=== PATIENT | female | born 1965 | race Caucasian/White ===

== ENCOUNTER → 2016-11-22 | Outpatient (CLI) | payer OTHER ==
[~2016-11-22] MED LIST: ARIP20TA8 PO; CA C1TAB28 PO; CETI1TAB7 PO; ECHI167T PO; ESOM40CA PO; ESTROGEN IM; LAMO25TA PO; LIDOCAINE/PRILOCAINE TOPICAL CREAM 5GM TUBE. TP ONE; LINO1LIQ MC; METH10TA2 PO; MILN100T PO; MOVANTIK12.5 MG PO; MULT-18 PO; NEFA200T PO; OMEG1CAP6 PO; OXCA300T3 PO; OXCA600T3 PO; OXYC15TA PO; POLY17PO5 PO; SOLI5TAB PO; TOLT2CAP PO; TOPI25TA32 PO; ZOLE5INF IV; [UNRECOGNIZED DRUG - CODE] PO; [UNRECOGNIZED DRUG - OTHER]; estrogen cream; testosterone cream
--- NOTE | 2016-11-22 23:55 | PAIN ---
DATE OF SERVICE: 11/22/2016 DIAGNOSES: 1. Low back pain. 2. Cervicalgia. 3. Left hip joint pain with osteoarthritis of the hip joint. 4. Myofascial pain. HISTORY OF PRESENT ILLNESS: The patient is a 51-year-old female who returns for followup status post medication management with both oxycodone and methadone. The patient reports she is doing fairly well, is on stable regimen, which helps with her neck and back pain. She also has a spinal cord stimulator, which was placed at an outside facility, which she reports is decreasing her pain by about 50%. The patient reports good results with the medications about 50% additional decrease pain, overall about 75% decreased pain with the combination of the stimulator and the medication management without significant side effects. The patient reports still she is having some pain. Her chief complaint today is some right-sided abdominal pain near the umbilicus where she has had 2 umbilical hernia repair surgeries performed within the last few months and is afraid she has a nerve entrapment in this area. She has seen her general surgeon as well as the plastic surgeon, which are not recommending any specific surgeries at this point. She also has a recent diagnosis of a ____ and also has Ehler-Danlos syndrome, which may be contributing to this. She is very worried as her abdominal wall was quite thin on CT scan on the right side and is worried about re-herniating. The patient reports she is doing well with her medications; however, has had appropriate K-TRACS reporting today and appropriate urinalysis today as well and reports the pain is a 3-4 on a scale of 10, again, some abdominal wall pain on the right side. She is very sensitive on the skin itself. PHYSICAL EXAMINATION: VITAL SIGNS: Today, the patient's blood pressure is 115/71, pulse 79, respirations 18, temperature is 98.1 degrees Fahrenheit. Height is 5 feet 8 inches, weight is 175 pounds. GENERAL: The patient is awake, alert, oriented, appropriate, very pleasant demeanor. HEENT: Head shows normocephalic, atraumatic. Extraocular movements are intact and symmetrical. Oral cavity shows mucous membranes moist and pink. Dentition is intact. NECK: Shows anterior throat supple without palpable lymphadenopathy noted. Swallow reflex is symmetrical. CHEST: Shows normal on inspection. Breath sounds are clear to auscultation bilaterally. HEART: Shows S1 and S2 clear. ABDOMEN: Soft with some tenderness with well-healed surgical scar on the superior aspect of the umbilicus, tenderness just barely off midline to the right of the umbilicus and slightly above it an area of about 3 cm in diameter, very sensitive and allodynic to the touch without skin discoloration or rash. No tenderness on the left side, it is very well demarcated about 3 cm diameter region. With deeper palpation, it has become severely tender, but significant tenderness over the skin itself, very hypersensitive and tender to touch. Lateral to this, medial, superior and inferior this is not tender even with deeper palpation. The patient also has some tenderness over the inferior aspect of the right rib cage, but with only deeper palpation and on the rib margin itself on the anterior aspects at approximately the mid nipple line. MUSCULOSKELETAL: The patient's back shows spine grossly midline. Neck shows some moderate tenderness to palpation in the musculature in the superior medial trapezius as well as lateral trapezius bilaterally, essentially equal. The patient does show good rotational motion of the cervical spine; however, both laterally as well as extension without significant pain reported. Low back shows some moderate tenderness as well. The patient has well-healed surgical scarring from stimulator placement and easily palpable stimulator battery, but is nontender. Lumbar paraspinous muscle shows some very mild tenderness along with deep palpation in the lower lumbar distribution bilaterally. Options were discussed with the patient. The patient's old chart was reviewed as her current medication regimen updated, current review of systems updated today as well. We will refill the patient's methadone as well as oxycodone. We will also add Lidoderm patches for the area of ____ pain in the right abdomen. We did put some Emla cream on the area while she is here in the office today and this helped the pain about 75% after it was on for about 10 minutes. We discussed the potential nerve block for the intraabdominal wall and she will consider this and would like to think about it and will return if she decides this is something that she would like to try, so we recommended that today as well. The patient will follow up with her surgeon regarding any further needs with hernia and postop care and was given a 90-day supply for her pain medications at this time. We will follow up in 90 days or sooner if necessary. WALT ARCHER MD DR: Uzair JOB#: [id number] / [id number]
== END | disposition home or self-care (01) ==
LOC: PNCL 11:31
PROVIDERS: ATTEND Anesthesiology
DX: M54.5 Low back pain (principal); M54.2 Cervicalgia; M25.552 Pain in left hip; M16.12 Unilateral primary osteoarthritis, left hip; M79.1 Myalgia
CPT/HCPCS: 99212

== ENCOUNTER → 2016-12-08 | Outpatient (CLI) | payer OTHER ==
[~2016-12-08] MED LIST changes: +BUPIVACAINE MPF 0.25% 10 ML VIAL. ONE; -LIDOCAINE/PRILOCAINE TOPICAL CREAM 5GM TUBE. TP ONE; +ZOLP5TAB PO; +methylPREDNISolone ACETATE 40 MG/ML VIAL. ONE
--- NOTE | 2016-12-09 02:27 | PAIN ---
DATE OF SERVICE: 12/08/2016 PROGRESS NOTE FOR PAIN CLINIC DIAGNOSES: 1. Myofascial pain. 2. Low back pain. 3. Cervicalgia. 4. Left hip joint pain. HISTORY OF PRESENT ILLNESS: The patient is a 51-year-old female who returns for followup status post trigger point injections as well as medication management. The patient had been doing fairly well with this. We had seen her on 11/22/2016 and she was having some significant pain on the right-sided abdominal wall, mostly on the lateral aspect near the ribs and into the anterior aspect where she has had previous hernia repair. We discussed potential trigger point injection and she would like to proceed with that today. We discussed this in greater detail. She has also talked to her plastic surgeon and general surgeon in the meantime who is recommending a reconstructive surgery for the diastasis recti; however, she would like to try other alternatives first. We also discussed some physical therapy and feel this may be the best option at this time. The patient has still significant pain in the right flank as well as the anterior abdomen, lateral abdomen and lower abdomen on the right hypogastric region as well as the right lower quadrant, superficial with very firm rope-like musculature in this region as on previous visit. PHYSICAL EXAMINATION: VITAL SIGNS: Today, the patient's blood pressure is 113/79, pulse 98, respirations 20, temperature is 97.9 degrees Fahrenheit, height is 5 feet 8 inches, weight is 165 pounds. The patient rates her pain as a 7 on a scale of 10 today. GENERAL: The patient is awake, alert, oriented, appropriate, has a very pleasant demeanor. HEENT: Shows normocephalic, atraumatic. Extraocular movements are intact and symmetrical. Oral cavity shows mucous membranes moist and pink. Dentition is intact. NECK: Shows anterior throat supple. CHEST: Shows breath sounds clear to auscultation bilaterally. HEART: Shows S1 and S2 clear. ABDOMEN: Shows a well-healed surgical scar near the umbilicus with some significant tenderness with palpation of the musculature on the lateral flank in the midaxillary line as well as into the area to the midclavicular line in the right lower quadrant and anterior to this, but lateral to the area of the hernia repair on the lower abdomen, very firm rope-like musculature, very tender with palpation and with the patient in supine position raising the head to flex the abdominal muscles, it becomes more tender as well with palpation in this region. No such findings on the left side. PLAN: Options were discussed with the patient. At this time, the patient's old chart was reviewed as was her current medication regimen and updated. Current review of systems updated today as well. We will proceed with trigger point injections of the internal and external oblique musculature on the right flank and to the ____ midclavicular line in the right lower quadrant. Risks were again discussed including, but not limited to bleeding, infection, possibility of intravascular injection and sequelae, intraperitoneal injection and sequelae, spread of local anesthetic and numbness, side effects of steroid medication and poor results regarding pain control. The patient understands and wishes to proceed. The patient will return to the clinic in approximately 2 weeks for followup, was counseled as to return appointment, activity level and side effects to be aware of. DIAGNOSIS: Myofascial pain. PROCEDURE: Trigger point injection, right lower quadrant and flank, internal oblique and external oblique musculature using sterile prep and drape and local anesthetic. MEDICATIONS INJECTED: A total of 40 mg Depo-Medrol plus a total of 4 mL of 0.25% bupivacaine with negative aspiration with each injection. CONDITION AT DISCHARGE: Stable. The patient tolerated the procedure well, had no complications. WALT ARCHER MD DR: HEMA/milagros JOB#: [id number] / [id number]
== END | disposition home or self-care (01) ==
LOC: PNCL 10:07
PROVIDERS: ATTEND Anesthesiology
DX: M79.1 Myalgia (principal)
CPT/HCPCS: 20552; J1030; J3490

== ENCOUNTER → 2017-02-14 | Outpatient (CLI) | payer OTHER ==
[~2017-02-14] MED LIST changes: +ARIP20TA5 PO; -ARIP20TA8 PO; -BUPIVACAINE MPF 0.25% 10 ML VIAL. ONE; +POLY17PO29 PO; -POLY17PO5 PO; -SOLI5TAB PO; +SOLI5TAB2 PO; -TOPI25TA32 PO; +TOPI25TA52 PO; -methylPREDNISolone ACETATE 40 MG/ML VIAL. ONE
--- NOTE | 2017-02-15 02:25 | PAIN ---
DATE OF SERVICE: 02/14/2017 DIAGNOSES: 1. Myofascial pain. 2. Low back pain. 3. Cervicalgia. 4. Left hip joint pain. HISTORY OF PRESENT ILLNESS: The patient is a 51-year-old female who returns for followup status post previous medication management with both methadone and oxycodone and she has recently had a spinal cord stimulator placed at an outside facility, which she reports is working not as well as it did initially, but still with some good pain relief on the right side of her flank and into the low back to some extent. The patient reports still significant pain in the base of the neck and shoulders, upper back as well as some aching in the low back and right flank. The patient has started physical therapy at an outside facility, which she is very encouraged by. She is doing some good core exercises and strengthening for her abdominal pain. She does have Aston-Danlos syndrome and has some diastasis recti history with pain on the right side, which has been nonresponsive to nerve blocks as well as myofascial trigger point injections to an extent. The patient reports her pain is a 3 on a scale of 10, it is worse currently, is aching dull pain, radiating, constant, severe, mostly in the neck and shoulders, to the low back to a moderate extent, but not as bad as prior to her stimulator placement. The patient reports no new motor or sensory deficits or other complaints. PHYSICAL EXAMINATION: VITAL SIGNS: The patient's blood pressure 120/83, pulse 84, respirations are 18, temperature is 98.0 degrees Fahrenheit, height is 5 feet 8 inches, weighs 170 pounds. GENERAL: The patient is awake, alert, oriented, appropriate, is very pleasant demeanor. HEENT: Head shows normocephalic, atraumatic. Extraocular movements intact and symmetrical. Oral cavity, mucous membranes are moist and pink. Dentition is intact. NECK: Shows anterior throat supple without palpable lymphadenopathy noted. Swallow reflex is symmetrical. CHEST: Shows normal on inspection. Breath sounds are clear to auscultation bilaterally. HEART: Shows S1 and S2 clear. ABDOMEN: Soft, nontender, nondistended, myofascial pain is noted on the inferior aspect of the right lower quadrant as well as into the epigastric area on the right side with some deep palpation. No specific trigger points are palpated on exam today. No specific radiation or other abnormalities, but left side remains nontender to palpation. BACK: The patient's back shows spine grossly in midline, normal-appearing cervical lordotic curvature, thoracic kyphotic curvature, and lumbar lordotic curvature. The patient's paraspinous musculature throughout the cervical distribution is mildly tender to palpation, but more so in the inferior aspect of the cervical paraspinous muscles as well as into the superior medial trapezius and the upper rhomboid distribution with some firm trigger point regions, but without radiation ____ into the thoracic distribution as well as into the lumbar distribution bilaterally. Options were discussed with the patient and the patient's old chart was reviewed as her current medication regimen updated. Current review of systems updated today as well and we will refill the patient's methadone as well as oxycodone with instructions, side effects to be aware of. The patient was counseled to continue her physical therapy as directed at her outside facility as we did supply the orders for this. Also, the patient has been getting more active in her community and feels that she is overall feeling better psychologically as she is finding more things that interest her to participate in and we encouraged this as well. The patient was encouraged to maintain exercise level as tolerated and if the stimulator level is not worked as it was initially, she will have this reevaluated with her stimulator customer service representative and have this reprogrammed as necessary. The patient will follow up in approximately 90 days' and was given 90-day supply of medications. She has had appropriate K-TRACS reporting as well as appropriate urinalysis to date. We will have her return 90 days as scheduled or sooner if necessary. WALT ARCHER MD DR: HEMA/milagros JOB#: [id number] / [id number]
== END | disposition home or self-care (01) ==
LOC: PNCL 10:59
PROVIDERS: ATTEND Anesthesiology
DX: M79.1 Myalgia (principal); M54.2 Cervicalgia; M54.5 Low back pain; M25.552 Pain in left hip
CPT/HCPCS: 99212

== ENCOUNTER → 2017-05-17 | Outpatient (CLI) | payer OTHER ==
--- NOTE | 2017-05-17 12:43 | PAIN ---
DATE OF SERVICE: 05/17/2017 PROGRESS NOTE DIAGNOSES: 1. Myofascial pain. 2. Low back pain. 3. Cervicalgia. 4. Left hip joint pain. 5. Right knee joint pain. HISTORY OF PRESENT ILLNESS: The patient is a 51-year-old female who returns for followup status post medication management with both methadone and oxycodone. The patient was doing fairly well on this with a very reasonably consistent regimen. The patient reports she has had increased pain over the last month to month and a half. During the day without her methadone lasting as long as it normally does, taking more the oxycodone, which we have been trying to discourage her from using, the patient reports that she realizes this and is somewhat worried about the situation as her pain has been increased mostly in the mid back, low back and hips. She does have a spinal cord stimulator now, which has been recently reprogrammed, but without a lot of significant improvement in her pain by her report. The patient reports her pain as 6 on a scale 10 currently at its worst and 4-5 on average, is a 3 on a scale of 10 at least. The patient reports it is radiating, constant, severe, stabbing, sharp, aching, dull, tight and shooting at times. The patient reports it awakens her from sleep occasionally, though she gets about 6 hours of sleep at a time. She can reposition, take medications or get out of bed and change positions. She is able to get back to sleep most nights. The patient reports no new motor or sensory deficits, but still significant pain, as well as in the abdominal wall. She has been decreasing her regimen of workout at the gym because of the increased pain as well and some right-sided abdominal pain, which is residual also. PHYSICAL EXAMINATION: VITAL SIGNS: The patient's blood pressure is 116/89, pulse 96, respirations 18, temperature is 98.4 degrees Fahrenheit, height is 5 feet 8 inches, weighs 173 pounds. GENERAL: The patient is awake, alert, oriented, appropriate, very pleasant demeanor. HEENT: Shows normocephalic, atraumatic. Extraocular movements are intact and symmetrical. Oral cavity shows mucous membranes moist and pink. Dentition is intact. NECK: Shows anterior throat supple without palpable lymphadenopathy noted. Swallow reflex is symmetrical. CHEST: Shows normal on inspection. Breath sounds are clear to auscultation bilaterally. HEART: Shows S1 and S2 clear. No murmurs auscultated. ABDOMEN: Soft with some tenderness, well-healed surgical scar on the superior aspect of the umbilicus, some tenderness just off midline to the right of the umbilicus and slightly above this region, about 3-4 cm lateral to the umbilicus and about 3 cm diameter area of very sensitive area with palpation on previous exams, but without any discoloration, or rash, but markedly tender in the lateral aspect of the rectus region on the right only. The patient has some tenderness with inferior aspect of the right rib cage as well anteriorly along with deeper palpation of the rib margin diffusely. Left side is nontender. No masses palpated. No hernias detected. No rebound or guarding demonstrated. BACK: The patient's back shows grossly midline spine. Neck shows some moderate tenderness to palpation in the musculature and the superior medial trapezius as well as lateral trapezius bilaterally, right and left essentially equal without radiation, without specific trigger points. Thoracic spine shows some [id number] tenderness, more on the right side than the left in the rhomboid distribution as well as the thoracic paraspinous muscles. Lumbar paraspinous muscle shows tenderness bilaterally with palpation throughout the upper, middle, lower distribution of paraspinous muscles, but without significant radiation or trigger points. The patient shows good rotation and motion of lumbar spine, both laterally as well as extension and flexion without significant tenderness. The patient has well-healed surgical scarring from stimulator placement, easily palpable stimulator battery, which is nontender with manipulation. EXTREMITIES: Show lower extremities deep tendon reflexes 1+ in the patellar and tendo calcaneus tendons. Motor exam is strong with 5/5 dorsiflexion and extension. Upper extremities show deep tendon reflexes 2+ in the biceps and triceps tendons. 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 Peripheral pulses are 2+ in radial distribution and 1+ in posterior tibial bilaterally. No peripheral edema is noted in any of the extremities. PLAN: Options were discussed with the patient. At this time, the patient's old chart was reviewed as her current medication regimen and updated. Current review of systems updated today as well, as noted. We will refill the patient's medication. We will change methadone to 50 mg instead of 40 mg on t.i.d. prescription for a temporary time. We will try this for 1-2, three months total and the patient will try and wean herself down on this prior to her next visit. Also refill the patient's oxycodone. We discussed the importance of maintaining her exercise regimen at the gym that she will go back to 3 times a week as soon as possible with slow increasing activity and exercises as well gradually. The patient will maintain her physical therapy as she has seen some physical therapy with some good benefit with her abdominal strength and will resume this as well. She has not gone there for about 2 weeks she reports. I encouraged her to maintain hydration. I encouraged her to watch her diet as well with the exercise program and she is doing a good job of this with her physical therapist she reports. The patient has had appropriate K-TRACS reporting as well as appropriate urinalysis to date as well. We will renew patient's narcotic contract today also. The patient will follow up in approximately 90 days or sooner as necessary and was counseled as to return appointment as well. WALT ARCHER MD DR: HEMA/milagros JOB#: [id number] / [id number]
== END | disposition home or self-care (01) ==
LOC: PNCL 11:07
PROVIDERS: ATTEND Anesthesiology
DX: M54.5 Low back pain (principal); M54.2 Cervicalgia; M79.1 Myalgia; M25.561 Pain in right knee; M25.552 Pain in left hip; R10.9 Unspecified abdominal pain
CPT/HCPCS: 99212

== ENCOUNTER → 2017-08-07 | Outpatient (CLI) | payer OTHER ==
[~2017-08-07] MED LIST changes: +ASCO100020 PO; +CALC600T4 PO; +CELE200C PO; +CRAN300T PO; +LACT1CAP29 PO; +METO10TA81 PO; +MULT-55 PO; +PREVAGEN PO; +RESERVATROL; +TIZA4CAP3 PO; +TOPI100T8 PO
[2017-08-07 09:02] LABS: BILIRUBIN,URINE NEGATIVE (NEG); GLUCOSE,URINE NEGATIVE (NEG); NITRITE,URINE NEGATIVE (NEG); PROTEIN,URINE NEGATIVE (NEG-TRACE); UROBILINOGEN,URINE 0.2 mg/dL (0.2 mg/dL)
[2017-08-07 09:12] LABS: BASO % 0 % (0-3); EOS % 2 % (0-3); HEMATOCRIT 38.8 % (36.0-47.0); HEMOGLOBIN 12.7 g/dL (12.0-15.5); LYMPH # 3.1 x10^3/uL (1.0-4.8); LYMPH % 36 % (24-48); MEAN CORPUSCULAR HEMOGLOBIN 30 pg (25-35); MEAN CORPUSCULAR HGB CONC 33 g/dL (31-37); MEAN CORPUSCULAR VOLUME 91 fL (79-100); MONO % 13 % (0-9); NEUT % 50 % (31-73); PLATELET COUNT 398 x10^3/uL (140-400); RED BLOOD COUNT 4.26 x10^6/uL (3.50-5.40); RED CELL DISTRIBUTION WIDTH 13.4 % (11.5-14.5); WHITE BLOOD COUNT 8.7 x10^3/uL (4.0-11.0)
[2017-08-07 09:20] LABS: BACTERIA,URINE FEW /HPF (0-FEW); RBC,URINE OCC /HPF (0-2); SQUAMOUS EPITHELIAL CELL,UR FEW /LPF
[2017-08-07 09:26] LABS: INR 1.1 (0.8-1.1); PROTHROMBIN TIME PATIENT 13.7 SEC (11.7-14.0)
[2017-08-07 09:32] LABS: ALBUMIN 3.7 g/dL (3.4-5.0); CALCIUM 9.3 mg/dL (8.5-10.1); CREATININE 0.8 mg/dL (0.6-1.0); GFR 75.6; POTASSIUM 3.9 mmol/L (3.5-5.1)
--- NOTE | 2017-08-07 13:06 | EKG ---
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
--- NOTE | 2017-08-07 14:04 | RAD ---
Chest, 2 views, 08/07/2017: History: Preop evaluation for joint surgery. The heart size and pulmonary vascularity are normal. No pulmonary infiltrates are seen. There is no evidence of pleural fluid. There is slight loss of height of a midthoracic vertebral body at approximately the T6 level, unchanged since an MR study from 09/01/2015. Spinal stimulator leads extend to the level of the cervicothoracic junction. IMPRESSION: No acute cardiopulmonary abnormality is detected.
== END | disposition home or self-care (01) ==
LOC: SURGPAT 14:25
PROVIDERS: ATTEND Orthopaedic Surgery
DX: Z01.818 Encounter for other preprocedural examination (principal); M17.11 Unilateral primary osteoarthritis, right knee; I34.1 Nonrheumatic mitral (valve) prolapse; I49.1 Atrial premature depolarization
CPT/HCPCS: 36415; 71020; 80048; 81001; 82040; 82306; 85025; 85610; 85651; 85730; 87086; 87641; 93005

== ENCOUNTER → 2017-08-14 | Outpatient (CLI) | payer OTHER ==
--- NOTE | 2017-08-14 10:33 | PAIN ---
DATE OF SERVICE: 08/14/2017 PROGRESS NOTE FOR PAIN CLINIC DIAGNOSES: 1. Myofascial pain. 2. Low back pain. 3. Cervicalgia. 4. Multiple joint pain. HISTORY OF PRESENT ILLNESS: The patient is a 52-year-old female who returns for followup status post medication management with methadone and oxycodone. The patient reports she is doing very well with this. We had increased her to 50 mg dose of the methadone with plans to reduce this today to 40 and the patient is amenable to this. She has been doing fairly well. She does have a spinal cord stimulator, which was placed at , which she feels helps the pain about 30%-40% overall with her low back and hip pain bilaterally. The patient reports otherwise doing fairly well but no specific side effects with the medications. The patient reports that she is amenable to decreasing the doses. We discussed her morphine equivalents per day and that we need to decrease her to some extent and she is agreeable to this as well. The patient reports no new motor or sensory deficits. Still has some significant pain in the bilateral knees. She is planning a knee surgery on the right side in approximately 2 weeks and also sinus surgery about 4 days after that. The patient reports the pain is 7 on a scale 10 at its worse, 5 on average, 3 at its least and is a 3 today. The patient reports aching, dull, radiating becoming constant more severe in the right side low back, bilateral hips, right knee greater than left again with total knee replacement coming up on the 19th of this month. The patient reports no new motor or sensory deficits, no new side effects and no new motor or sensory deficits or other complaints. The patient reports pain wakes her from sleep about every 6 hours or so but otherwise, she does fairly well with repositioning, taking pain medication. Again, she has had a fairly stable routine with her medications to this date. PHYSICAL EXAMINATION: VITAL SIGNS: Today, blood pressure 136/84, pulse 90, respirations 18, temperature 98.1 degrees Fahrenheit and weight is 172 pounds. GENERAL: The patient is awake, alert, oriented, appropriate and very pleasant demeanor. HEENT: Head shows normocephalic and atraumatic. Extraocular muscles are intact and symmetrical. Oral cavity: Mucous membranes moist and pink. Dentition is intact. NECK: Shows anterior throat supple without palpable lymphadenopathy noted. Swallow reflex symmetrical. CHEST: Shows normal with inspection. Breath sounds are clear to auscultation bilaterally. HEART: Shows S1 and S2 clear. No murmurs auscultated. ABDOMEN: Soft, nontender and nondistended. No palpable organomegaly is noted. BACK: The patient's back shows spine grossly in the midline. Well healed surgical scars noted from spinal cord stimulator implant. Stimulator battery is easily palpable without tenderness. The patient's lumbar distribution shows mild flattening lumbar distribution. Paraspinous musculature shows moderate tenderness bilaterally throughout the upper, middle, lower distribution with deep and moderate palpation. The patient has good rotational motion both laterally as well as extension and flexion. The patient does show some minor tenderness in the middle thoracic paraspinous musculature, more on the right than the left with palpation but without radiation. LOWER EXTREMITIES: Show deep tendon reflexes 1+ in the patellar and tendo calcaneus tendons. Motor exam is strong with dorsiflexion, extension, quadriceps and hamstring flexion approximately 4 on a scale of 5 but equal bilaterally. Peripheral pulses are 1+ posterior tibial. No peripheral edema is noted. Options were discussed with the patient and we will refill the patient's methadone as well as oxycodone, which will be decreased to 150 tablets a month instead of 180 and the methadone will be decreased to 40 mg t.i.d. instead of 50. The patient had appropriate K-TRACS reporting as well as appropriate urinalysis to date. We will check urinalysis today as well as a routine screening tool. We renew the patient's contract and also, we will give the patient medicine for coverage for postoperative pain for her knee and a sinus surgeries at oxycodone 20 mg, only 75 tablets to use for both of these surgeries coming up in the next 2 weeks. The patient will return to the clinic in approximately 90 days or sooner, was asked to call if she has any difficulties with her postoperative pain for her knee or sinus surgery. Also, maintain activity and follow instructions with her orthopedic surgeon regarding rehab on her right knee. WALT ARCHER MD DR: HEMA/milagros JOB#: [id number] / [id number]
== END | disposition home or self-care (01) ==
LOC: PNCL 07:51
PROVIDERS: ATTEND Anesthesiology
DX: M54.5 Low back pain (principal); M54.2 Cervicalgia; M25.551 Pain in right hip; M25.562 Pain in left knee; Z96.653 Presence of artificial knee joint, bilateral
CPT/HCPCS: 99212

== ENCOUNTER → 2017-09-21 | Outpatient (CLI) | payer BC | END | disposition home or self-care (01) | LOC: PNCL 10:46 | DX: M54.2 Cervicalgia (principal); M54.5 Low back pain; G89.18 Other acute postprocedural pain; Z98.890 Other specified postprocedural states; M25.561 Pain in right knee | CPT/HCPCS: 99212 ==

== ENCOUNTER → 2017-10-20 | Outpatient (CLI) | payer BC | END | disposition home or self-care (01) | LOC: PNCL 10:15 | DX: M54.2 Cervicalgia (principal); M54.5 Low back pain; M25.50 Pain in unspecified joint | CPT/HCPCS: 99212 ==

== ENCOUNTER → 2017-11-06 | Outpatient (CLI) | payer OTHER | LOC: PNCL 13:18 | DX: M79.7 Fibromyalgia (principal); M54.2 Cervicalgia; M25.561 Pain in right knee; M54.5 Low back pain; R10.2 Pelvic and perineal pain; Z98.890 Other specified postprocedural states | CPT/HCPCS: 99212 ==

== ENCOUNTER → 2017-11-13 | Outpatient (CLI) | payer BC | LOC: KCIC CT 11:00 | DX: N20.0 Calculus of kidney (principal); J98.11 Atelectasis; D35.02 Benign neoplasm of left adrenal gland; M16.0 Bilateral primary osteoarthritis of hip; M47.896 Other spondylosis, lumbar region; K21.9 Gastro-esophageal reflux disease without esophagitis; Z90.710 Acquired absence of both cervix and uterus; M19.90 Unspecified osteoarthritis, unspecified site; F31.9 Bipolar disorder, unspecified; Z91.048 Other nonmedicinal substance allergy status; Z80.6 Family history of leukemia; Z80.51 Family history of malignant neoplasm of kidney; Z83.3 Family history of diabetes mellitus; Z80.0 Family history of malignant neoplasm of digestive organs | CPT/HCPCS: 74176 ==

== ENCOUNTER → 2018-01-03 | Outpatient (CLI) | payer BC | END | disposition home or self-care (01) | LOC: PNCL 13:14 | DX: M54.5 Low back pain (principal); M54.2 Cervicalgia; M79.1 Myalgia | CPT/HCPCS: 99212 ==

== ENCOUNTER → 2018-01-30 | Outpatient (CLI) | payer BC ==
[~2018-01-30] MED LIST changes: -ARIP20TA5 PO; -ASCO100020 PO; +BUPIVACAINE MPF 0.25% 10 ML VIAL.; -CA C1TAB28 PO; -CALC600T4 PO; -CELE200C PO; -CETI1TAB7 PO; -CRAN300T PO; -ECHI167T PO; -ESOM40CA PO; -ESTROGEN IM; -LACT1CAP29 PO; -LAMO25TA PO; -LINO1LIQ MC; -METH10TA2 PO; -METO10TA81 PO; -MILN100T PO; -MOVANTIK12.5 MG PO; -MULT-18 PO; -MULT-55 PO; -NEFA200T PO; -OMEG1CAP6 PO; -OXCA300T3 PO; -OXCA600T3 PO; -OXYC15TA PO; -POLY17PO29 PO; -PREVAGEN PO; -RESERVATROL; -SOLI5TAB2 PO; -TIZA4CAP3 PO; -TOLT2CAP PO; -TOPI100T8 PO; -TOPI25TA52 PO; -ZOLE5INF IV; -ZOLP5TAB PO; -[UNRECOGNIZED DRUG - CODE] PO; -[UNRECOGNIZED DRUG - OTHER]; -estrogen cream; +methylPREDNISolone ACETATE 40 MG/ML VIAL.; -testosterone cream
== END ==
LOC: PNCL 10:20
DX: M79.1 Myalgia (principal); M54.5 Low back pain; M54.2 Cervicalgia; K21.9 Gastro-esophageal reflux disease without esophagitis; Z90.710 Acquired absence of both cervix and uterus; M19.90 Unspecified osteoarthritis, unspecified site; M81.0 Age-related osteoporosis without current pathological fracture; F31.9 Bipolar disorder, unspecified; F41.9 Anxiety disorder, unspecified; Z83.3 Family history of diabetes mellitus; Z80.51 Family history of malignant neoplasm of kidney; Z80.6 Family history of leukemia; Z80.0 Family history of malignant neoplasm of digestive organs; Z98.890 Other specified postprocedural states
CPT/HCPCS: 20553; J1030; J3490

== ENCOUNTER → 2018-03-28 | Outpatient (CLI) | payer BC | END | disposition home or self-care (01) | LOC: PNCL 13:04 | DX: M54.2 Cervicalgia (principal); M54.5 Low back pain; M25.50 Pain in unspecified joint; M79.1 Myalgia; K21.9 Gastro-esophageal reflux disease without esophagitis; Z80.6 Family history of leukemia; Z80.0 Family history of malignant neoplasm of digestive organs; Z80.51 Family history of malignant neoplasm of kidney; Z83.3 Family history of diabetes mellitus | CPT/HCPCS: 99212 ==

== ENCOUNTER → 2018-07-02 | Outpatient (CLI) | payer BC ==
[2017-08-25 15:05] VITALS: BP 111/74
[~2018-07-02] MED LIST changes: +ARIP20TA5 PO; +ASCO100020 PO; +ASPI325T11 PO; -BUPIVACAINE MPF 0.25% 10 ML VIAL.; +CA C1TAB28 PO; +CALC600T4 PO; +CELE200C PO; +CETI1TAB7 PO; +CRAN300T PO; +ECHI167T PO; +ESOM40CA PO; +ESTROGEN IM; +LACT1CAP29 PO; +LAMO25TA PO; +LINO1LIQ MC; +METH10TA2 PO; +METO10TA81 PO; +MILN100T PO; +MOVANTIK12.5 MG PO; +MULT-18 PO; +MULT-55 PO; +NEFA200T PO; +OMEG1CAP6 PO; +OXCA300T3 PO; +OXCA600T3 PO; +OXYC15TA PO; +POLY17PO29 PO; +PREVAGEN PO; +RESERVATROL; +SOLI5TAB2 PO; +TIZA4CAP3 PO; +TOLT2CAP PO; +TOPI100T8 PO; +TOPI25TA52 PO; +ZOLE5INF IV; +ZOLP5TAB PO; +[UNRECOGNIZED DRUG - CODE] PO; +[UNRECOGNIZED DRUG - OTHER]; +estrogen cream; -methylPREDNISolone ACETATE 40 MG/ML VIAL.; +testosterone cream
--- NOTE | 2018-07-03 00:51 | PAIN ---
DATE OF SERVICE: 07/02/2018 PROGRESS NOTE FOR PAIN CLINIC DIAGNOSES: 1. Myofascial pain. 2. Multiple joint pain. 3. Cervicalgia. 4. Low back pain. HISTORY OF PRESENT ILLNESS: The patient is a 52-year-old female who returns for followup status post medication management of both oxycodone and methadone. The patient reports she has been doing very well and this has been a very stable regimen, without any significant side effects. She reported some significant pain in her right knee, although she was overdoing it, by her description, with her right knee with a lot of recent walking, exercising and climbing stairs. The patient reports pain is increased in the knee. She has seen the orthopedic surgeon, however, who is recommending just decreasing activity, without any other interventional modalities at this time or other treatments. The patient reports there is still significant pain in the mid back, upper back, neck, shoulders and low back as well. Describes it as aching, dull, tight, radiating, becoming more constant, more severe, on and off in intensity. However, the patient reports it is an 8 on a scale of 10 at its worst, 6 on average, 2 at its least and is a 6 today. The patient reports no new motor or sensory deficits. No side effects with the medications. She is doing quite well and it has been on a very stable regimen. The patient reports she is sleeping well at night about every 6 hours. Generally, it is not waking her from sleep most nights, though if it does, she can usually reposition or take pain medication and get back to sleep. The patient reports no new findings. PHYSICAL EXAMINATION: VITAL SIGNS: The patient's blood pressure is 113/75, pulse 90, respirations 18 and temperature is 98.6 degrees Fahrenheit. Height is 5 feet 8 inches, weight is 169 pounds. GENERAL: The patient is awake, alert, oriented, appropriate, very pleasant demeanor. HEENT: Head shows normocephalic, atraumatic. Extraocular muscles are intact and symmetrical. Oral cavity, mucous membranes are moist and pink. Dentition is intact. NECK: Shows anterior throat supple, without palpable lymphadenopathy noted. Swallow reflex is symmetrical. CHEST: Shows normal on inspection. Breath sounds are clear to auscultation bilaterally. HEART: Shows S1, S2 clear. No murmurs auscultated. ABDOMEN: Soft, nontender and nondistended. No palpable organomegaly is noted. No rebound or guarding demonstrated. BACK: Shows spine grossly in the midline. Normal-appearing thoracic kyphosis and lumbar lordotic curvature. Lumbar paraspinous muscle shows symmetrical on inspection, with well-healed surgical scarring noted. With palpation, it shows some mild tenderness in the lumbar distribution bilaterally, without specific radiation, trigger points or asymmetry. The patient has good rotational motion of the lumbar spine, both laterally as well as extension and flexion, without significant increase in pain. EXTREMITIES: Lower extremities show deep tendon reflexes at 1+ in the patellar and tendo calcaneus tendons. Well-healed surgical scars over the right anterior knee. Peripheral pulses are 1+ posterior tibia. No peripheral edema is noted. Motor exam is strong with 5/5 dorsiflexion and extension. Options were discussed with the patient. The patient's old chart was reviewed as her current medication regimen updated. Current review of systems updated today as well and we will refill the patient's methadone as well as oxycodone and Voltaren gel. The patient has had appropriate K-TRACS reporting as well as appropriate urinalysis to date and we will refill for a 3-month, 90-day supply. The patient was given instruction as well as side effects to be aware of with each of the medications and will follow up in about 3 months as scheduled or sooner as necessary. WALT ARCHER MD DR: HEMA/milagros JOB#: [id number] / [id number]
== END | disposition home or self-care (01) ==
LOC: PNCL 13:27
PROVIDERS: ATTEND Anesthesiology
DX: M79.18 Myalgia, other site (principal); M54.5 Low back pain; M54.2 Cervicalgia; M25.50 Pain in unspecified joint
CPT/HCPCS: 99212

== ENCOUNTER → 2018-09-24 | Outpatient (CLI) | payer BC ==
[2017-08-25 15:05] VITALS: BP 111/74
[~2018-09-24] MED LIST changes: +OXCA300T19 PO
--- NOTE | 2018-09-24 17:36 | PAIN ---
DATE OF SERVICE: 09/24/2018 PROGRESS NOTE FOR PAIN CLINIC DIAGNOSES: 1. Myofascial pain. 2. Multiple joint pain. 3. Cervicalgia. 4. Low back pain. HISTORY OF PRESENT ILLNESS: The patient is a 53-year-old female who returns for followup status post medication management with both methadone and oxycodone, also taking Savella and using Voltaren gel for her knee. The patient reports still some significant pain in her knee and she has total knee replacement on the right several months back, but still has some pain with walking and standing. The patient reports her main pain is her low back and her neck and rates at 7 on a scale of 10 at its worst, 6 on average, 4 at its least and is a 6 today. The patient reports it is aching, sharp, dull, radiating, constant, severe at times, difficulty with sleeping occasionally, but generally does not awaken her from sleep every night. The patient reports she is doing well with her medications and has been on a very stable regimen, is having no side effects and again is awake, alert and appropriate. She reports no sedation and no drowsiness. She reports she does have some sleep apnea and she is trialing a CPAP mask currently. She has been snoring at night by her report. The patient did have a sleep study and is trying different CPAP masks currently. The patient reports otherwise no new motor or sensory deficits, no new changes. PHYSICAL EXAMINATION: VITAL SIGNS: The patient's blood pressure is 135/75, pulse 88, respirations 16, temperature 98.6 degrees Fahrenheit, height is 5 feet 8 inches, weight is 171 pounds. GENERAL: The patient is awake, alert, oriented, appropriate, has very pleasant demeanor. HEENT: Head is normocephalic, atraumatic. Extraocular movements are intact and symmetrical. Oral cavity: Mucous membranes are moist and pink. Dentition is intact. NECK: Shows anterior throat supple without palpable lymphadenopathy noted. Swallow reflex is symmetrical. CHEST: Shows normal on inspection. Breath sounds are clear to auscultation bilaterally. HEART: Shows S1, S2 clear. No murmurs auscultated. ABDOMEN: Soft with some minor tenderness in the supraumbilical region and very tender area, which feels like a small ventral hernia approximately 2 cm x 2 cm, which is very tender with pressure and does protrude with bending down. The patient otherwise shows no organomegaly, no rebound or guarding or other areas of tenderness. BACK: Shows spine grossly in the midline. Cervical paraspinous muscles as well as lumbar paraspinal muscles are tender with palpation throughout and diffusely bilaterally, but without radiation. The patient has good rotational motion of cervical spine as well as lumbar spine without significant increase in pain. EXTREMITIES: Show upper extremity deep tendon reflexes 2+. Lower extremities are 1+ in the patellar and tendo calcaneus tendons. Well healed surgical scars noted again on the patient's right knee. Motor exam is strong with gambling supervisor strength rated at 5/5, as is bicep and tricep flexion. Lower extremities show 5/5 dorsiflexion and extension as well bilaterally. Peripheral pulses are 1+ posterior tibial and 2+ radial. No peripheral edema is noted in any of the extremities. Options were discussed with the patient. The patient's old chart was reviewed as her current medication regimen updated. Current review of systems updated today as well. We will refill the patient's methadone as well as oxycodone and Savella and Voltaren gel on a 90-day period. The patient has been very stable on these medications without side effects and has had appropriate K-TRACS reporting as well as appropriate urinalysis to date. We will refill this for a 90-day period. We will have urinalysis today as well as part of routine screening and renew the patient's narcotic contract and will be given a copy of that as well. The patient will follow up in approximately 90 days or sooner as necessary. WALT ARCHER MD DR: HEMA/milagros JOB#: [id number] / [id number]
== END | disposition home or self-care (01) ==
LOC: PNCL 13:00
PROVIDERS: ATTEND Anesthesiology
DX: M79.18 Myalgia, other site (principal); M54.2 Cervicalgia; M54.5 Low back pain; Z96.651 Presence of right artificial knee joint; G47.30 Sleep apnea, unspecified
CPT/HCPCS: G0463

== ENCOUNTER → 2018-11-13 | Outpatient (CLI) | payer BC ==
[2017-08-25 15:05] VITALS: BP 111/74
[~2018-11-13] MED LIST changes: +FLECTOR1 EACH TP; +KETO1SPR NS; -LAMO25TA PO; +LAMO25TA9 PO
--- NOTE | 2018-11-14 00:30 | PAIN ---
DATE OF SERVICE: 11/13/2018 DIAGNOSES: 1. Abdominal pain. 2. Multiple joint pain. 3. Myofascial pain. 4. Cervicalgia. 5. Low back pain. HISTORY OF PRESENT ILLNESS: The patient is a 52-year-old female who returns for followup status post medication management with oxycodone as well as methadone. The patient has been doing very well with this. She has had recent abdominal hernia repair surgery; however, laparoscopically with mesh placement, had some significant pain since the day after the surgery in the left lower quadrant, which is becoming very more noticeably painful for her over times. It is about 6 weeks since her surgery now, reports significant pain in the left lower quadrant of the abdomen, which is her chief complaint today. The patient reports it is 8 on a scale of 10 at its worst, 6 on average, 3 at its least and is a 6 today. The patient reports it is sharp, tight, shooting, burning, stabbing, constant, severe. She is quite worried that something has gone wrong with the mesh. The patient has followed up with her general surgeon who assured her that everything was in place and was doing well, but she is still having significant pain. The patient reports she has been putting Lidoderm patches on the left lower quadrant, also ice packs, which do seem to help, but the pain is there constantly. The patient reports it is constant and severe in the left lower quadrant at this time. The patient reports it awakens her from sleep at night, worse with walking, changing positions, bending, stooping, twisting. She is essentially keeping an ice pack on her side at all times. The patient has tried oral anti-inflammatories, Voltaren as well as Advil, Motrin and Tylenol, all with only minimal decrease in pain. PHYSICAL EXAMINATION: VITAL SIGNS: The patient's blood pressure 142/75, pulse 90, respirations 18, temperature 98.3 degrees Fahrenheit, height is 5 feet 8 inches, weighs is 171 pounds. GENERAL: The patient is awake, alert, oriented, appropriate, very pleasant demeanor. HEENT: Exam shows normocephalic, atraumatic. Extraocular movements are intact and symmetrical. Oral cavity: Mucous membranes moist and pink. Dentition is intact. NECK: Shows anterior throat supple without palpable lymphadenopathy noted. Swallow reflex is symmetrical. CHEST: Shows normal on inspection. Breath sounds are clear to auscultation bilaterally. HEART: Shows S1, S2 clear. ABDOMEN: Shows well-healed surgical scars, laparoscopic scars in the midline as well as in the left lower quadrant on the lateral aspect of the abdominal wall, very tender with palpation over the area of the left incision from laparoscopy and medial and inferior to this. No discoloration, no erythema, no drainage, no swelling, no palpable organomegaly. The patient is quite guarded with palpation on the left lower quadrant. Right side is nontender and soft. Options were discussed with the patient. The patient's old chart was reviewed as was her current medication regimen updated. Current review of systems is updated today as well and we will add a diclofenac patch to the left lower quadrant in her regimen as well as Sprix (nasal Toradol) for try for 5-day period and see this may decrease the inflammation enough and the pain enough to get her back on track. She will continue to use the ice pack as needed, also Lidoderm patches as needed. The patient is given instruction as well as side effects of to be aware of the medications. Sprix [facility] be delivered through [facility]. The patient will follow up in approximately 4 weeks as scheduled or sooner as necessary. WALT ARCHER MD DR: HEMA/milagros JOB#: [id number] / [id number]
== END | disposition home or self-care (01) ==
LOC: PNCL 08:44
PROVIDERS: ATTEND Anesthesiology
DX: M54.2 Cervicalgia (principal); M54.5 Low back pain; M79.18 Myalgia, other site; R10.32 Left lower quadrant pain; M25.50 Pain in unspecified joint
CPT/HCPCS: G0463

== ENCOUNTER → 2018-12-17 | Outpatient (CLI) | payer BC ==
[2017-08-25 15:05] VITALS: BP 111/74
--- NOTE | 2018-12-18 05:02 | PAIN ---
DATE OF SERVICE: 12/17/2018 DIAGNOSES: 1. Myofascial pain. 2. Multiple joint pains. 3. Cervicalgia. 4. Low back pain. 5. Abdominal pain. HISTORY OF PRESENT ILLNESS: The patient is a 53-year-old female who returns for followup status post medication management with both methadone and also oxycodone. The patient had a recent mesh, abdominal hernia repair with some left lower quadrant pain, which was significantly painful following the procedure for several months. The pain is reduced now. She had some acupuncture treatment on her left lower quadrant, which she reports significantly decreased the pain. It is now 6-7 on a scale of 10 at its worst, 6-7 on average, 4 at its least and is a 4 today. The patient reports as much better in the abdomen. Still pain in the base of the neck, shoulders, upper back, mid back and especially in her low back is her main complaint today. The patient reports the pain is aching, dull, tight, shooting, constant, becoming more severe and stabbing in the low back itself with walking, standing, change in positions, wakes her from sleep about every 7 hours at night, but not every night. The patient reports no new motor or sensory deficits, no new bowel or bladder incontinence. Again, her abdomen is doing much, much better. She has been on very stable regimen of her medications without significant side effects except for some constipation and we will maintain with some Movantik which she reports she does not use every day, but it does decrease the constipation significantly. PHYSICAL EXAMINATION: VITAL SIGNS: Today, the patient's blood pressure 130/81, pulse 83, respirations 16, temperature 98.7 degrees Fahrenheit. Height is 5 feet 8 inches, weighs 175 pounds. GENERAL: The patient is awake, alert, oriented, appropriate, very pleasant demeanor. HEENT: Head normocephalic, atraumatic. Extraocular movements intact and symmetrical. Oral cavity, mucous membranes are moist and pink. Dentition is intact. NECK: Shows anterior throat supple without palpable lymphadenopathy noted. Swallow reflex is symmetrical. CHEST: Shows normal with inspection. Breath sounds clear to auscultation bilaterally. HEART: Shows S1 and S2 clear. No murmurs auscultated. ABDOMEN: Shows some moderate tenderness in the left lower quadrant with well-healed surgical scarring noted and also some mild tenderness in the right lower quadrant in the epigastric region as well with no palpable organomegaly. No rebound or guarding demonstrated. BACK: Shows spine grossly in the midline. The patient shows well-healed surgical scars from spinal cord stimulator placement over the right gluteus as well as in the paramedian in the right lumbar paraspinous region. The patient's paraspinous musculature throughout the lower thoracic and upper, middle and lower distribution of the lumbar paraspinal muscles are very firm and moderately tender diffusely bilaterally without radiation. EXTREMITIES: The patient's lower extremities show deep tendon reflexes 1+ in the patellar and tendo-calcaneus tendons. Motor exam is strong with 5/5 dorsiflexion, extension, quadriceps and hamstring flexion. Peripheral pulses are 1+ posterior tibia. No peripheral edema is noted. Options were discussed with the patient. The patient's old chart was reviewed as his current medication regimen updated. Current review of systems updated today as well. We will refill the patient's methadone as well as oxycodone with instructions, side effects to be aware of discussed. Also, Savella and Voltaren gel and Movantik. The patient was given instruction as well as side effects to be aware of each of the medications. The patient had appropriate K-TRACS reporting as well as appropriate urinalysis to date. We will refill this for a 90-day supply. The patient will follow up in 90 days or sooner as necessary. The patient was encouraged to discuss with her [employer] spinal cord stimulator community engagement representative possible reprogramming to include some in the low back distribution with her stimulator if possible. The patient will follow up as scheduled. WALT ARCHER MD DR: HEMA/milagros JOB#: [id number] / [id number]
== END | disposition home or self-care (01) ==
LOC: PNCL 13:15
PROVIDERS: ATTEND Anesthesiology
DX: R10.32 Left lower quadrant pain (principal); M54.2 Cervicalgia; M54.5 Low back pain; M25.50 Pain in unspecified joint; M79.18 Myalgia, other site
CPT/HCPCS: G0463

== ENCOUNTER → 2019-02-12 | Outpatient (CLI) | payer BC ==
[2017-08-25 15:05] VITALS: BP 111/74
[~2019-02-12] MED LIST changes: +ARMO150T4 PO; +ESTR1TAB15 PO
[2019-02-12 12:31] LABS: BILIRUBIN,URINE NEGATIVE (NEG); CLARITY,URINE CLEAR; COLOR,URINE YELLOW; NITRITE,URINE NEGATIVE (NEG); PH,URINE 6.5; PROTEIN,URINE NEGATIVE (NEG-TRACE); UROBILINOGEN,URINE 0.2 mg/dL (0.2 mg/dL)
[2019-02-12 12:36] LABS: AMORPHOUS SEDIMENT,UR PRESENT /HPF; SQUAMOUS EPITHELIAL CELL,UR MANY /LPF
[2019-02-12 12:37] LABS: BACTERIA,URINE MODERATE /HPF (0-FEW); RBC,URINE OCC /HPF (0-2)
--- NOTE | 2019-02-12 12:57 | EKG ---
[facility] [address] [place] [address] Test Date: 2019-02-12 Test Time: 12:58:12 Pat Name: KENA GARCIA Department: Room: Gender: F Clothing Man: SENDY : 1965 Requested By: JULIENNE GIRON Order Number: [id number] Reading MD: Romel Ma Measurements Intervals [place] Rate: 71 P: 38 NM: 182 QRS: 11 QRSD: 96 T: 51 QT: 384 QTc: 422 Interpretive Statements SINUS RHYTHM INCOMPLETE RIGHT BUNDLE BRANCH BLOCK OTHERWISE NORMAL ECG RI6.01 No previous ECG available for comparison Electronically Signed On 02-14-2019 13:46:49 CDT by Romel Ma
[2019-02-12 13:24] LABS: BASO % 0 % (0-3); EOS % 1 % (0-3); HEMATOCRIT 38.2 % (36.0-47.0); HEMOGLOBIN 12.7 g/dL (12.0-15.5); LYMPH # 2.5 x10^3/uL (1.0-4.8); LYMPH % 39 % (24-48); MEAN CORPUSCULAR HEMOGLOBIN 31 pg (25-35); MEAN CORPUSCULAR HGB CONC 33 g/dL (31-37); MEAN CORPUSCULAR VOLUME 92 fL (79-100); MONO # 0.6 x10^3/uL (0.0-1.1); MONO % 10 % (0-9); NEUT # 3.2 x10^3uL (1.8-7.7); NEUT % 50 % (31-73); PLATELET COUNT 369 x10^3/uL (140-400); RED BLOOD COUNT 4.17 x10^6/uL (3.50-5.40); RED CELL DISTRIBUTION WIDTH 13.5 % (11.5-14.5); WHITE BLOOD COUNT 6.4 x10^3/uL (4.0-11.0)
[2019-02-12 13:30] LABS: PROTHROMBIN TIME PATIENT 13.2 SEC (11.7-14.0)
[2019-02-12 13:33] LABS: ALBUMIN 3.9 g/dL (3.4-5.0); CREATININE 0.8 mg/dL (0.6-1.0); POTASSIUM 4.3 mmol/L (3.5-5.1)
--- NOTE | 2019-02-12 17:30 | RAD ---
Chest, 2 views, 02/12/2019: HISTORY: Preop evaluation for knee replacement Comparison is made to a study from 08/07/2017. Spinal stimulator leads extend into the upper thoracic spinal canal. The heart size is normal. No pulmonary infiltrate is seen. There is no evidence of pleural fluid. There is a mild thoracic scoliosis with scattered spurs. There is minimal unchanged loss of height of a midthoracic vertebral body. A slight lower thoracic vertebral compression deformity at approximately T12 is new. IMPRESSION: No acute cardiopulmonary abnormality is detected. Electronically signed by: Eduard Ricardo MD (02/12/2019 5:27 PM) [facility]
== END | disposition home or self-care (01) ==
LOC: SURGPAT 11:48
PROVIDERS: ATTEND Orthopaedic Surgery
DX: Z01.818 Encounter for other preprocedural examination (principal); M23.51 Chronic instability of knee, right knee; M41.84 Other forms of scoliosis, thoracic region; I45.19 Other right bundle-branch block
CPT/HCPCS: 36415; 71046; 80048; 81001; 82040; 82306; 85025; 85610; 85651; 85730; 87086; 87641; 93005

== ENCOUNTER → 2019-03-11 | Outpatient (CLI) | payer BC ==
[2019-02-22 15:30] VITALS: BP 102/63
--- NOTE | 2019-03-11 21:40 | PAIN ---
DATE OF SERVICE: 03/11/2019 PROGRESS NOTE FOR PAIN CLINIC DIAGNOSES: 1. Myofascial pain. 2. Multiple joint pain. 3. Cervicalgia. 4. Low back pain. 5. Right knee joint pain postoperatively. 6. Abdominal pain, left lower quadrant. HISTORY OF PRESENT ILLNESS: The patient is a 53-year-old female who returns for followup status post medication management with both methadone and oxycodone. The patient is doing very well on a very stable regimen. We had planned to decrease her methadone back down to 30 mg 3 times a day instead of 40 mg. She had recent knee surgery and recovering well with this. We covered this with some additional oxycodone for postop pain as well. The patient reports she is doing quite well, still rehabing and still has a brace on her knee and using a walker to ambulate, but is doing very well, is doing her physical therapy and getting through it by her report quite well. The patient reports that her pain is well controlled, still has a 6-7 on a scale of 10 at its worst, 4 on average, 2 at its least and is a 4 today. The patient reports it is aching, dull, shooting, radiating, sometimes constant and sometimes severe in the back as well as the neck and shoulders, but also in the right knee. The patient reports no new motor or sensory deficits and no new changes. PHYSICAL EXAMINATION: VITAL SIGNS: The patient's blood pressure is 137/86, pulse 81, respirations 18, temperature 98.3 degrees Fahrenheit, height is 5 feet 8 inches and weight is 175 pounds. GENERAL: The patient is awake, alert, oriented, appropriate, very pleasant demeanor. The patient is accompanied by her spouse. HEENT: Shows normocephalic and atraumatic. Extraocular movements are intact and symmetrical. Oral cavity: Mucous membranes are moist and pink. Dentition is intact. NECK: Shows anterior throat is supple without palpable lymphadenopathy noted. Swallow reflex is symmetrical. CHEST: Shows normal with inspection. Breath sounds are clear bilaterally. HEART: Shows S1 and S2 clear. ABDOMEN: Soft, nontender and nondistended. Well-healed surgical scarring noted. BACK: The patient's back shows spine grossly in the midline. Some moderate tenderness with palpation of the cervical paraspinous musculature only diffusely bilaterally into the superior medial and lateral trapezius as well. Lumbar spine shows symmetrical with well-healed surgical scarring noted from spinal cord stimulator placement, moderate tenderness on palpation of the bilateral paraspinous musculature of the lumbar distribution as well, but only diffusely without radiation. The patient has good rotational motion of both the cervical spine and the lumbar spine without significant pain reported. EXTREMITIES: The patient's extremities show upper extremity deep tendon reflexes at 2+ in the biceps and triceps tendons. Grape Crusher strength is strong with 5/5 underbaster strength, bicep and tricep flexion. Lower extremities show deep tendon reflexes 1+ in the left patellar tendon, right did not assess secondary to brace and ice pack on her right knee. Motor exam is approximately 3 or 4 on a scale of 5 with right quadriceps, hamstring and 5/5 on the left, again secondary to brace on her right knee and quadriceps. Options were discussed with the patient. The patient's old chart was reviewed as was her current medication regimen updated. Current review of systems updated today as well. We will refill the patient's methadone again only 30 mg 3 times daily decreased from 40 and also oxycodone 15 mg on a p.r.n. basis. The patient has had appropriate K-TRACS reporting as well as appropriate urinalysis to date. We will make this a 90-day prescription. The patient also is requesting a letter for her upcoming employment, she is starting a new job in about one month, describing the medication that she is on and why she is on them. She is close to her new employer. We will make those arrangements. The patient will follow up in approximately 90 days or sooner as necessary, was counseled on medication regimen as well as side effects to be aware of with each of her medications. Also given prescriptions for Movantik and Voltaren gel and we will follow up as scheduled. WALT ARCHER MD DR: HEMA/milagros JOB#: [id number] / [id number]
== END | disposition home or self-care (01) ==
LOC: PNCL 12:54
PROVIDERS: ATTEND Anesthesiology
DX: M54.5 Low back pain (principal); M54.2 Cervicalgia; R10.32 Left lower quadrant pain; M25.561 Pain in right knee; M79.18 Myalgia, other site; Z79.891 Long term (current) use of opiate analgesic
CPT/HCPCS: G0463

== ENCOUNTER → 2019-06-03 | Outpatient (CLI) | payer BC ==
[2019-02-22 15:30] VITALS: BP 102/63
--- NOTE | 2019-06-03 08:53 | PAIN ---
DATE OF SERVICE: 06/03/2019 PROGRESS NOTE FOR PAIN CLINIC DIAGNOSES: 1. Myofascial pain. 2. Multiple joint pain. 3. Cervicalgia. 4. Low back pain. 5. Abdominal pain and postop pain. HISTORY OF PRESENT ILLNESS: The patient is a 53-year-old female who returns for followup status post medication management with both methadone and oxycodone, also taking Savella and Movantik for constipation, which she is doing quite well with. The patient reports she does not take it every day, but when she does need it does work well. The patient reports still having some difficulty with pain in the low back, mid back, upper back, neck, chest, shoulders and right flank. Describes it as aching, sharp, dull, tight, constant, radiating, and severe. The patient reports the pain is 7-8 on a scale of 10 at its worst, 5-6 on average, 4-5 at its least and is a 6 today. The patient reports she has just started a new job, which she is not happy with and this is causing some emotional stress with her as well. She has difficulty sleeping. Her CPAP machine is not working well and she has a spinal cord stimulator, which was put in at an outside facility, has been off for the past week and she is having some difficulty with programming which is being addressed later today as well. The patient reports no side effects with her medications. She reports that overall on most days, the pain is decreased by about 70-75% with the medication without any significant side effects, but lately with emotional stress and the stimulator issues, it has not been quite effective. PHYSICAL EXAMINATION: VITAL SIGNS: The patient's blood pressure 126/81, pulse 91, respirations 18, temperature 98.4 degrees Fahrenheit, height is 5 feet 8 inches, weight is 165 pounds. GENERAL: The patient is awake, alert, oriented, appropriate, very pleasant demeanor. HEENT: Shows normocephalic, atraumatic. Extraocular movements are intact and symmetrical. Oral cavity: Mucous membranes moist and pink. Dentition is intact. NECK: Shows anterior throat supple without palpable lymphadenopathy noted. Swallow reflex symmetrical. CHEST: Breath sounds clear to auscultation bilaterally. HEART: Shows S1, S2 clear. No murmurs auscultated. ABDOMEN: Soft, nontender, nondistended. No palpable organomegaly is noted. No rebound or guarding demonstrated. She shows some moderate tenderness in the left lower quadrant as well as some on the right rib margin, but without rash and without abnormalities on appearance and without any obvious masses palpated, but with some sensitivity and allodynic type pain on the skin on the right rib margin, mostly laterally and slightly towards the anterior aspect as well on the inferior rib margin on the right. BACK: The patient's neck shows good rotational motion of cervical spine, both laterally as well as extension and flexion. Paraspinous musculature symmetrical on inspection, with palpation shows some moderate tenderness diffusely throughout the upper, middle and lower distribution of the cervical paraspinous musculature. This is true in the lumbar distribution as well with symmetry on appearance, but with moderate tenderness and well-healed surgical scarring noted from stimulator implant. Moderate tenderness with palpation throughout the upper, middle and lower distribution of paraspinous muscles in the lumbar distribution, also without radiation or trigger points. EXTREMITIES: Upper extremity deep tendon reflexes 2+, lower extremities are 1+ patellar and tendo calcaneus tendons. Motor exam is strong with flow worker strength as well as biceps and tricep flexion, dorsiflexion, extension, quadriceps and hamstring flexion, symmetrical and 5/5 and equal bilaterally. Options were discussed with the patient. The patient's old chart was reviewed as her current medication regimen updated. Current review of systems updated today as well and we will refill the patient's medications. She has had appropriate K-TRACS reporting as well as appropriate urinalysis to date, for a 90-day supply of methadone, also oxycodone, Savella and Voltaren gel. The patient was given instruction as well as side effects to be aware of each of the medications and will follow up in approximately 90 days or sooner as necessary. WALT ARCHER MD DR: HEMA/milagros JOB#: [id number] / [id number]
== END | disposition home or self-care (01) ==
LOC: PNCL 07:32
PROVIDERS: ATTEND Anesthesiology
DX: M79.18 Myalgia, other site (principal); M54.2 Cervicalgia; G89.18 Other acute postprocedural pain; R10.9 Unspecified abdominal pain; M54.5 Low back pain; M25.50 Pain in unspecified joint
CPT/HCPCS: G0463

== ENCOUNTER → 2019-06-20 | Outpatient (CLI) | payer BC ==
[2019-02-22 15:30] VITALS: BP 102/63
== END | disposition home or self-care (01) ==
LOC: LAB 09:52
PROVIDERS: ATTEND Orthopaedic Surgery
DX: Z47.1 Aftercare following joint replacement surgery (principal); Z96.651 Presence of right artificial knee joint
CPT/HCPCS: 36415; 85651; 86141

== ENCOUNTER → 2019-08-19 | Outpatient (CLI) | payer BC ==
[2019-02-22 15:30] VITALS: BP 102/63
--- NOTE | 2019-08-19 09:59 | PAIN ---
DATE OF SERVICE: 08/19/2019 PROGRESS NOTE FOR PAIN CLINIC DIAGNOSES: 1. Myofascial pain. 2. Multiple joint pain. 3. Cervicalgia. 4. Low back pain. 5. Abdominal pain. 6. Right shoulder joint pain with osteoarthritis. HISTORY OF PRESENT ILLNESS: The patient is a 54-year-old female who returns for followup status post medication management with both methadone and oxycodone, also Savella and Voltaren gel. The patient is doing well with these, some constipation, which is controlled with Movantik which she is also taking for the constipation controlling it well. The patient reports that she is basically at baseline with the medications approximately about 70% improvement with medications overall. The patient has had some emotional stress associated with her place of employment lately, which has caused the pain to be more noticeable, but overall fairly well managed. The patient has had some right shoulder pain, which she is seeking a new orthopedic evaluation soon. The patient reports the pain is 8 on a scale of 10 at its worst over the past week, 7-8 on average, 5 at its least and is an 8 today. The patient reports it is aching, dull, tight, burning, radiating, constant, severe at the base of the neck, shoulders, upper back, mid back, low back, right shoulder greater than left, also both knees. The patient reports no new motor or sensory deficits, no new bowel or bladder incontinence or other complaints. The patient reports it awakens her from sleep at least every 5 hours or so at night from either the shoulder, the low back, back of the neck and over the knees themselves. The patient reports her spinal cord stimulator, which she has had put in at an outside facility, has been turned off as it was causing the pain to actually get worse. PHYSICAL EXAMINATION: VITAL SIGNS: The patient's blood pressure 132/81, pulse 99, respirations 18, temperature 98.2 degrees Fahrenheit, height is 5 feet 8 inches and weight is 166 pounds. GENERAL: The patient is awake, alert, oriented, appropriate, very pleasant demeanor. HEENT: Head shows normocephalic, atraumatic. Extraocular movements are intact and symmetrical. Oral cavity: Mucous membranes moist and pink. Dentition is intact. NECK: Shows anterior throat supple without palpable lymphadenopathy noted. Swallow reflex symmetrical. CHEST: Shows normal on inspection. Breath sounds are clear bilaterally. HEART: Shows S1, S2 clear. No murmurs auscultated. ABDOMEN: Soft, mildly tender in the inferior aspect with well-healed surgical scars noted in the periumbilical region and mildly tender as well, but without rebound, without guarding without organomegaly. BACK: The patient's back shows spine grossly in midline. Cervical paraspinous muscle shows symmetrical on inspection, on palpation shows some moderate tenderness diffusely throughout the upper, middle and lower distribution of paraspinous muscles, but without specific trigger points. The patient does show good rotational motion of cervical spine, both laterally as well as extension and flexion without significant difficulty. This is true in the thoracic spine as well as lumbar spines bilaterally. The patient shows no trigger points, no radiation of pain. The patient has good rotational motion of lumbar spine as well without significant increase in pain as well. EXTREMITIES: The patient's extremities show upper extremity deep tendon reflexes 2+ in the biceps, triceps tendons. Lower extremities are 1+ patellar tendons. Motor exam is strong with clinical operations manager strength rated at 5/5 as is biceps and triceps flexion. Lower extremities show deep tendon reflexes at 1+ patellar and tendo-calcaneus tendons. Motor exam is strong with dorsiflexion, extension, quadriceps and hamstring flexion rated at 5/5. Options were discussed with the patient. The patient's old chart was reviewed as her current medication regimen updated. Current review of systems updated today as well. We will proceed with refill of the patient's medications. She has had a very good success with the current medications and doses without any alteration or adjustments recently. The patient has had appropriate K-TRACS reporting as well as appropriate urinalysis to date. We refilled these for a 90-day supply with each medication. The patient was given instruction as well as side effects to be aware of each of the medications and will have urinalysis today as routine screening. Also, redo of the patient's narcotic contract. She was given a copy of this as well. The patient will follow up in approximately 90 days or sooner if necessary. WALT ARCHER MD DR: HEMA/milagros JOB#: [id number] / [id number]
== END | disposition home or self-care (01) ==
LOC: PNCL 07:33
PROVIDERS: ATTEND Anesthesiology
DX: M19.011 Primary osteoarthritis, right shoulder (principal); M79.18 Myalgia, other site; M45.2 Ankylosing spondylitis of cervical region; M54.5 Low back pain; R10.9 Unspecified abdominal pain
CPT/HCPCS: G0463

== ENCOUNTER → 2019-09-05 | Outpatient (CLI) | payer BC, OTHER ==
[2019-02-22 15:30] VITALS: BP 102/63
--- NOTE | 2019-09-05 08:45 | PAIN ---
DATE OF SERVICE: 09/05/2019 PROGRESS NOTE FOR PAIN CLINIC DIAGNOSES: 1. Myofascial pain. 2. Multiple joint pain. 3. Cervicalgia. 4. Lumbago. 5. Right shoulder joint pain with osteoarthritis. HISTORY OF PRESENT ILLNESS: The patient is a 54-year-old female, who returns for followup status post medication management with both methadone and oxycodone, also Savella. The patient reports she has been doing very well on all of these medications. She has tried Flexeril, Cymbalta, gabapentin, and Lyrica in the past with very significant bad side effects. Also, amitriptyline and we had tried Savella, which she does fairly well with decent amount of decrease in pain and her myofascial multiple symptoms. The patient reports recently she has had something where she felt a pop or a crack in her mid upper back between the shoulder blades or just below the shoulder blades in the thoracic region, which had significant pain. She went to an urgent care a few days ago, had an x-ray done. She was told she had a compressed disk and had an MRI scan ordered, which will be done tomorrow, 09/06/2019. I asked her to forward the results of that to us when this is done. Significant pain in the mid upper back between the shoulder blades or just below the shoulder blades, slightly more on the right than the left, but without any specific radiation. The patient reports otherwise doing well with her medications. No specific side effects. She has been on very stable regimen with the Savella as well as the methadone and oxycodone. PHYSICAL EXAMINATION: VITAL SIGNS: The patient's blood pressure is 107/72, pulse 96, respirations 18, temperature 98.2 degrees Fahrenheit, height is 5 feet 8 inches, weight is 164 pounds. GENERAL: The patient is awake, alert, oriented, appropriate. She has very pleasant demeanor. The patient rates her pain as a 7-8 on a scale of 10. The patient describes it as aching, sharp, shooting, stabbing, radiating, and severe in the mid upper back. HEENT: Shows normocephalic, atraumatic. Extraocular movements are intact and symmetrical. Oral cavity shows mucous membranes moist and pink. Dentition is intact. NECK: Shows anterior throat supple without palpable lymphadenopathy noted. Swallow reflex symmetrical. CHEST: Shows normal on inspection. Breath sounds clear to auscultation bilaterally. HEART: Shows S1, S2 clear. No murmurs auscultated. BACK: Shows spine grossly in the midline. Normal-appearing thoracic kyphosis, cervical lordotic curvature, some minor flattening of the lumbar lordotic curvature with well-healed surgical scarring noted from previous spinal cord stimulator placement, easily palpable stimulator battery over the right gluteus. The patient's back shows some moderate tenderness with slight hypertrophy in the right thoracic paraspinous musculature in the mid and lower thoracic distribution, but less so than the left, but no specific trigger points, has very firm musculature, which is moderately tender with palpation, but only moderately so. The patient has good rotational motion of the cervical and thoracic spines, both laterally as well as extension and flexion without significant increase in pain. EXTREMITIES: The patient's upper extremities show deep tendon reflexes 2+ in the biceps and triceps tendons. Motor exam is strong with accident examiner strength as well as bicep and tricep flexion, rated at 5/5 and equal. Peripheral pulses are 2+ radial. No peripheral edema is noted. PLAN: Options were discussed with the patient. The patient's old chart was reviewed as her current medication regimen updated. Current review of systems updated today as well. We will await the patient's MRI scan, which is scheduled for tomorrow and was asked to have the results sent to our office. The patient will continue with her medications as prescribed at this time. We will await the MRI scan results and proceed from there. WALT ARCHER MD DR: HEMA/milagros JOB#: [id number] / [id number]
== END | disposition home or self-care (01) ==
LOC: PNCL 07:58
PROVIDERS: ATTEND Anesthesiology
DX: M19.011 Primary osteoarthritis, right shoulder (principal); M79.18 Myalgia, other site; M54.2 Cervicalgia; M54.5 Low back pain
CPT/HCPCS: G0463

== ENCOUNTER → 2019-11-11 | Outpatient (CLI) | payer OTHER ==
[2019-02-22 15:30] VITALS: BP 102/63
--- NOTE | 2019-11-11 10:17 | PAIN ---
DATE OF SERVICE: 11/11/2019 PROGRESS NOTE FOR PAIN CLINIC DIAGNOSES: 1. Myofascial pain. 2. Multiple joint pain. 3. Cervicalgia. 4. Low back pain. 5. Abdominal pain. HISTORY OF PRESENT ILLNESS: The patient is a 54-year-old female, who returns for followup status post medication management with both methadone and oxycodone, also the patient is taking Movantik and Savella. The patient reports she is doing fairly well with this very stable regimen with medications. Still some significant low back pain in the mid and low back itself. The patient reports it is worse with walking, standing, changing positions, better with sitting or lying down, still significant pain now with daily activities. The patient reports anywhere from 5-6 hours at night, it is waking her from sleep. Reports no new motor or sensory deficits, but has multiple new x-rays from her [facility] the [facility], which she has left for review. The patient reports the pain is a 7-8 on a scale of 10 at its worst over the past week, 6 on an average, 4-5 at its least and is a 5 today. The patient reports it is aching, sharp, dull, tight, stabbing, radiating, becoming more constant, more severe. The patient reports no loss of motor function, but still significant pain in the mid and low back itself. The patient does have a spinal cord stimulator, which was placed at an outside facility and reports she is having the leads revised later this week for the insertion site as she is having some pain over that region at the upper part of the lumbar spine. The patient reports no side effects with the medications, has been on a stable regimen with the methadone and oxycodone for some time now, reports about a 70% improvement overall with the medications and again without specific side effects except for constipation, which responds fairly well to Movantik as well as hydration, [id number] laxatives and senna that she has been using recently. PHYSICAL EXAMINATION: VITAL SIGNS: The patient's blood pressure is 113/72, pulse 83, respirations 12, temperature is 98.1 degrees Fahrenheit, height is 5 feet 8 inches, weight is 172 pounds. GENERAL: The patient is awake, alert, oriented, appropriate, very pleasant demeanor. HEENT: Shows normocephalic, atraumatic. Extraocular movements are intact and symmetrical. Oral cavity: Mucous membranes moist and pink; dentition is intact. NECK: Shows anterior throat supple without palpable lymphadenopathy noted. Swallow reflex symmetrical. CHEST: Shows normal on inspection. Breath sounds are clear bilaterally. HEART: Shows S1, S2 clear. No murmurs auscultated. ABDOMEN: Soft. Well-healed surgical scar is noted. Some moderate tenderness throughout the upper quadrants as well as the lower quadrants, but only diffusely without significant radiation, without organomegaly or rebound demonstrated. BACK: The patient's back shows spine grossly in midline. Well-healed surgical scar is noted from spinal cord stimulator placement, which is moderately tender throughout the lumbar paraspinous musculature bilaterally, but appears symmetrical without evidence of atrophy or hypertrophy. The patient has good rotational motion of lumbar spine, both laterally as well as extension and flexion without significant difficulty. No tenderness over the sacrum, sacroiliac regions or the spinous processes. EXTREMITIES: Lower extremities show deep tendon reflexes at 1+ in the patellar and tendo-calcaneus tendons. Motor exam is strong with 5/5 dorsiflexion and extension. Peripheral pulses are 1+ posterior tibial bilaterally. Options were discussed with the patient. The patient's old chart was reviewed as her current medication regimen updated. Current review of systems updated today as well. We will refill the patient's methadone as well as oxycodone, Savella and Voltaren gel. The patient has had appropriate K-TRACS reporting as well as appropriate urinalysis to date. We will refill this for a 90-day period. The patient was given instructions as well as side effects to be aware of each of the medications and will follow up in approximately 90 days or sooner as necessary. Also, after discussion, we will order physical therapy for lumbar traction for the patient as this may be beneficial with degenerative changes existing in her lumbar spine on recent films. WALT ARCHER MD DR: HEMA/milagros JOB#: [id number] / [id number]
== END | disposition home or self-care (01) ==
LOC: PNCL 07:48
PROVIDERS: ATTEND Anesthesiology
DX: M51.36 Other intervertebral disc degeneration, lumbar region (principal); M25.50 Pain in unspecified joint; M79.18 Myalgia, other site; M54.2 Cervicalgia; R10.84 Generalized abdominal pain
CPT/HCPCS: G0463

== ENCOUNTER → 2020-02-05 | Outpatient (CLI) | payer OTHER ==
[2019-02-22 15:30] VITALS: BP 102/63
[~2020-02-05] MED LIST changes: +ESTR-113 PO; -ESTR1TAB15 PO; -OXYC15TA PO; +OXYC15TA3 PO
--- NOTE | 2020-02-05 12:53 | PAIN ---
DATE OF SERVICE: 02/05/2020 PROGRESS NOTE FOR PAIN CLINIC DIAGNOSES: 1. Myofascial pain. 2. Chronic pain syndrome. 3. Multiple joint pain. 4. Cervicalgia. 5. Low back pain. 6. Abdominal pain, left lower quadrant, postoperatively. 7. Right knee joint pain, postoperatively. 8. Right shoulder joint pain with osteoarthritis. HISTORY OF PRESENT ILLNESS: The patient is a 54-year-old female who returns for followup status post medication management both methadone and oxycodone as well as Voltaren gel and Movantik for constipation. The patient returns for followup today reporting still significant pain in the mid back, upper back, especially in the low back bilaterally. The patient reports also some pain in the right shoulder. She has seen orthopedist tomorrow regarding the right shoulder pain as well as followup on her right knee joint, which has been replaced in the recent past. The patient reports the pain is a 6 on a scale of 10 at its worst over the past week, 4 on average, 2 at its least and is a 4 today. The patient reports it is aching, dull, radiating, constant, severe in the low back, aching and dull in the right shoulder with some burning pain in the right shoulder as well. The right knee is doing better; however, still some tingling pain now and then, but her low back is her main complaint today. The patient does have a spinal cord stimulator, which was placed at an outside facility, but the patient reports that the coverage of the low back, is not covering at all. The patient reports it does help with the upper thoracic pain that she has had, however. The patient reports no new motor or sensory deficits, no new bowel or bladder incontinence, no side effects with the medication and has been on very stable regimen of this as well. The patient reports she is sleeping fairly well at night, awakens her from sleep occasionally with low back pain about every 5 hours, but not every night. PHYSICAL EXAMINATION: VITAL SIGNS: The patient's blood pressure 115/76, pulse 90, respirations 18, temperature 99.2 degrees Fahrenheit, height is 5 feet 8 inches, weight is 169 pounds. GENERAL: The patient is awake, alert, oriented, appropriate, very pleasant demeanor. HEENT: Shows normocephalic, atraumatic. Extraocular movements are intact and symmetrical. Oral cavity shows mucous membranes moist and pink. Dentition is intact. NECK: Shows anterior throat supple without palpable lymphadenopathy noted. Swallow reflex symmetrical. CHEST: Shows normal on inspection. Breath sounds are clear to auscultation bilaterally. No rales, rhonchi or wheezes auscultated. HEART: Shows S1, S2 clear. No murmurs auscultated. ABDOMEN: Soft, nontender, nondistended with well-healed surgical scarring noted. Some mild firm abdominal wall palpation in the inferior rectus abdominis more on the right than the left, but without specific trigger points and without significant radiation or significant pain with palpation. BACK: The patient's back shows spine grossly in the midline. Well-healed surgical scar is noted from spinal cord stimulator placement in the lumbar spine. Easily palpable stimulator is in the right posterior superior gluteus. The patient has good rotational motion of lumbar spine with significant tenderness with extension and axial loading of the lumbar spine, but better with forward flexion at 45 degrees. Right and left lateral rotation is performed fully without significant difficulty as well. The patient shows no significant tenderness over the sacroiliac regions, spinous processes or the sacrum itself. EXTREMITIES: The patient's extremities show upper extremity deep tendon reflexes at 2+ in the biceps and triceps tendons. Motor exam is strong with talcer strength rated at 5/5 and equal bilaterally. Lower extremities show deep tendon reflexes 1+ in the patellar and tendo-calcaneus tendons and symmetrical. Peripheral pulses are 1+ posterior tibia. Motor is 5/5 with dorsiflexion and extension bilaterally as well. PLAN: Options were discussed with the patient. The patient's old chart was reviewed as her current medication regimen updated. Current review of systems updated today as well. We will refill the patient's medications, both methadone and oxycodone for a 90-day supply as she has had appropriate K-TRACS reporting as well as appropriate urinalysis to date. The patient was given instruction as well as side effects to be aware of each of the medications. Also, we will follow up with her spinal cord stimulator billing customer service representative for reprogramming was highly recommended to try this to cover the low back coverage with the stimulator. The patient will contact her billing customer service representative regarding this. Also, follow up with her orthopedic surgeon tomorrow as scheduled. WALT ARCHER MD DR: [email or web address]/milagros JOB#: [id number] / [id number]
== END | disposition home or self-care (01) ==
LOC: PNCL 10:35
PROVIDERS: ATTEND Anesthesiology
DX: G89.18 Other acute postprocedural pain (principal); M22.41 Chondromalacia patellae, right knee; M25.461 Effusion, right knee; M54.2 Cervicalgia; M54.5 Low back pain; R10.32 Left lower quadrant pain; M25.511 Pain in right shoulder; M25.561 Pain in right knee
CPT/HCPCS: G0463

== ENCOUNTER → 2020-04-29 | Outpatient (CLI) | payer OTHER ==
[2019-02-22 15:30] VITALS: BP 102/63
[~2020-04-29] MED LIST changes: -CALC600T4 PO; +CALC600T6 PO
--- NOTE | 2020-04-29 11:09 | PDOC ---
Progress Note - Pain Clinic Date of Service: DOS: DATE: 04/29/20 TIME: 11:04 Diagnosis: Dx: Myofascial pain Multi-joint pain Chronic pain syndrome Abdominal pain left lower quadrant Right knee joint pain Right shoulder joint pain Cervicalgia Low back pain History or Present Illness: HPI: 54-year-old female returns for follow-up status post medication management with both methadone and oxycodone as well as Voltaren gel and Savella. Patient reports she is doing very well on this but a very stable regimen but 70% improvement with the medications and without specific side effects except for constipation which she takes Movantik for which is helpful. Patient reports significant increase in pain however in the low to mid back patient does have a spinal cord stimulator placed at an outside facility which is not covering this area and patient reports that her spine physician is evaluating her for a second stimulator to be trialed next week. Patient reports the pain in the low back is an 8 on a scale of 10 is worse over the past week 7 on average/and is a 7 today patient which is aching dull tight pain more constant severe worse with activity walking standing changing positions. Patient does have new plain films of the lumbar spine and her hip showing some facet arthropathy most significant at the L5-S1 levels bilaterally. Patient reports no new motor or sensory deficits no new bowel bladder incontinence no other side effects with medication. Physical Exam: VS: Pressure is 120/80 pulse 96 respirations 18 temperature 98.4 F height is 5 foot 8 inches weight is 170 pound PE: PHYSICAL EXAMINATION: GENERAL: The patient is awake, alert, oriented, appropriate, very pleasant demeanor HEENT: Shows normocephalic, atraumatic. Extraocular movements are intact and symmetrical. Oral cavity: Mucous membranes moist and pink. Dentition is intact. NECK: Shows anterior throat supple without palpable lymphadenopathy noted. Swallow reflex symmetrical. CHEST: Shows normal on inspection. Breath sounds are clear bilaterally no rales rhonchi or wheezes auscultated. HEART: Shows S1, S2 clear. No murmurs auscultated. ABDOMEN: Soft, mildly tender in the left lower quadrant with well-healed surgical scarring noted, nondistended. No palpable organomegaly is noted. No rebound or guarding demonstrated. BACK: Shows spine grossly in the midline. Normal-appearing cervical lordotic curvature. There is slightly increased thoracic kyphosis, some minor flattening of the lumbar lordotic curvature. Lumbar paraspinous muscles show symmetrical on inspection, with well-healed surgical scarring and easily palpable spinal cord stimulator generator, on palpation shows some moderate tenderness diffusely throughout the upper, middle and lower distribution of the paraspinous muscles bilaterally and also into the lower thoracic paraspinous musculature, firm and tender, but without specific trigger points, without radiation of pain. The patient has good rotational motion of the lumbar spine, both laterally as well as extension and flexion without significant difficulty, but with moderate tenderness with extension but not with forward flexion. No tenderness over the spinous processes, sacrum or sacroiliac regions. EXTREMITIES: Lower extremities show deep tendon reflexes 1 in the patellar and tendo calcaneus tendons. Motor exam is 4 on a scale of 5 with right dorsiflexion, extension, quadriceps and hamstring flexion and 4/5 on the left. Peripheral pulses are 1+ posterior tibial. No peripheral edema is noted bilaterally. Lower extremities are warm and dry to touch, equal in color and appearance. SKIN: Shows warm and dry, good turgor. No edema. No sores, rashes throughout. Procedure: Procedure: Options were discussed with the patient. Patient will chart was reviewed as her current medication regimen updated current review of systems updated today as well. We will refill patient's medication for a 3-month refill. Patient had appropriate K tract report as well as appropriate urinalyses to date. We will have a urinalysis taken today for routine screening. Patient will follow-up with her spine physician and also follow-up in 90 days or sooner as necessary. Medication Injected: Med Injected: None Condition at Discharge: Condition at Discharge: Condition at discharge stable. WALT ARCHER MD Apr 29, 2020 11:09
== END | disposition home or self-care (01) ==
LOC: PNCL 10:04
PROVIDERS: ATTEND Anesthesiology
DX: M54.5 Low back pain (principal); M54.2 Cervicalgia; M25.561 Pain in right knee; M25.511 Pain in right shoulder; Z88.8 Allergy status to other drugs, medicaments and biological substances; Z72.89 Other problems related to lifestyle; Z79.899 Other long term (current) drug therapy
CPT/HCPCS: G0463

== ENCOUNTER → 2020-08-14 | Outpatient (CLI) | payer OTHER ==
[2019-02-22 15:30] VITALS: BP 102/63
--- NOTE | 2020-08-14 11:49 | PDOC ---
Progress Note - Pain Clinic Date of Service: DOS: DATE: 08/14/20 TIME: 11:44 Diagnosis: Dx: Myofascial pain Multiple joint pain Cervicalgia Lumbar go Abdominal pain left lower quadrant Right knee joint pain with postoperative osteoarthritis Right shoulder joint pain with osteoarthritis Chronic pain syndrome History or Present Illness: HPI: 55-year-old female returns follow-up status post medication management with methadone and oxycodone also taking Savella and Movantik for constipation. Patient particularly well with medication regimen and has had a new spinal cord stimulator generator placed within the last month which is working much better than the old one and she is feeling somewhat better with that as well. Patient still reports pain in the mid upper back which is significant the low back pain is better but with the new stimulator. Patient reports her medication regimen is working well with about a 65 to 70% improvement with medications without significant side effects other than constipation which is well controlled with Movantik. Patient reports no new motor or sensory deficits no new bowel or bladder incontinence or other deficits. Patient rates her pain as a 7 on scale 10 is worse over the past week 5 on average for its least and is a 7 today. Patient reports worse with activity especially with sleeping at night and awakened from sleep in the mid upper back aching dull and tight in description as well as radiating constant severe at times in the mid upper back as well. Physical Exam: VS: Blood pressure is 120/90 pulse 84 respirations 16 temperature 98.2 F weight is 173 pounds PE: PHYSICAL EXAMINATION: GENERAL: The patient is awake, alert, oriented, appropriate, very pleasant demeanor HEENT: Shows normocephalic, atraumatic. Extraocular movements are intact and symmetrical. Oral cavity: Mucous membranes moist and pink. Dentition is intact. NECK: Shows anterior throat supple without palpable lymphadenopathy noted. Swallow reflex symmetrical. CHEST: Shows normal on inspection. Breath sounds are clear bilaterally, no rales rhonchi or wheezes. HEART: Shows S1, S2 clear. No murmurs auscultated. ABDOMEN: Soft, nontender, nondistended, obese. Well-healed surgical scar noted. No palpable organomegaly is noted. No rebound or guarding demonstrated. BACK: Shows spine grossly in the midline. Normal-appearing cervical lordotic curvature. There is increased thoracic kyphosis, some flattening of the lumbar lordotic curvature. Lumbar paraspinous muscles show symmetrical on inspection, on palpation shows some moderate tenderness diffusely throughout the upper, middle and lower distribution of the paraspinous muscles bilaterally and also into the lower thoracic paraspinous musculature, firm and tender, but without s pecific trigger points, without radiation of pain. The patient has good rotational motion of the lumbar spine, both laterally as well as extension and flexion without significant difficulty. Easily palpable spinal cord stimulator generator is noted with well-healed surgical scarring. No tenderness over the spinous processes, sacrum or sacroiliac regions. EXTREMITIES: Lower extremities show deep tendon reflexes 1+ in the patellar and tendo calcaneus tendons. Motor exam is 4 on a scale of 5 with right hesham siflexion, extension, quadriceps and hamstring flexion and 4/5 on the left. Peripheral pulses are 1+ posterior tibial. No peripheral edema is noted bilaterally. Lower extremities are warm and dry to touch, equal in color and appearance. Upper extremities show deep tendon reflexes 2+ in the bicep tricep tendons are equal motor exam is strong with operations forester strength rated 5 out of 5 as is bicep and tricep flexion peripheral pulses are 2+ radial no peripheral edema bilaterally in the upper extremities as well. SKIN: Shows warm and dry, good turgor. No edema. No sores, rashes or bruising throughout. Procedure: Procedure: Options discussed with the patient. Patient's old chart was reviewed as her current medication regimen updated current review of systems updated today as well. We will refill patient's methadone as well as oxycodone also Savella and Movantik for 90-day prescription. Patient is had appropriate K tracts reporting was appropriate urinalyses to date and will follow-up in approximate 90 days or sooner if necessary. We did discuss possibility of decreasing her narcotic regimen at this time however she is having significant pain in the mid upper back and is still dependent upon the medication to a significant extent with still achieving only 65 to 70% improvement with the medications. We discussed that we will revisit this in the future and potentially try to decrease the narcotic daily amounts. Medication Injected: Med Injected: None Condition at Discharge: Condition at Discharge: Condition at discharge is stable. WALT ARCHER MD Aug 14, 2020 11:49
== END | disposition home or self-care (01) ==
LOC: PNCL 10:54
PROVIDERS: ATTEND Anesthesiology
DX: M54.2 Cervicalgia (principal); M79.18 Myalgia, other site; G89.4 Chronic pain syndrome; R10.32 Left lower quadrant pain; M19.011 Primary osteoarthritis, right shoulder; M17.11 Unilateral primary osteoarthritis, right knee; K21.9 Gastro-esophageal reflux disease without esophagitis; G47.30 Sleep apnea, unspecified; F41.9 Anxiety disorder, unspecified; F32.9 Major depressive disorder, single episode, unspecified; Z90.710 Acquired absence of both cervix and uterus; Z98.890 Other specified postprocedural states; Z72.89 Other problems related to lifestyle; Z79.82 Long term (current) use of aspirin; Z79.899 Other long term (current) drug therapy; Z82.49 Family history of ischemic heart disease and other diseases of the circulatory system; Z83.3 Family history of diabetes mellitus; Z88.8 Allergy status to other drugs, medicaments and biological substances
CPT/HCPCS: G0463

== ENCOUNTER → 2020-11-06 | Outpatient (CLI) | payer BC, OTHER ==
[2019-02-22 15:30] VITALS: BP 102/63
--- NOTE | 2020-11-06 12:34 | PDOC ---
Progress Note - Pain Clinic Date of Service: DOS: DATE: 11/06/20 TIME: 12:26 Diagnosis: Dx: Chronic pain syndrome Myofascial pain Abdominal pain Right knee joint pain Cervicalgia Low back pain Right shoulder joint pain with osteoarthritis History or Present Illness: HPI: 55-year-old female returns to follow-up status post medication management with methadone and oxycodone. Patient also taking Savella and Movantik for constipation. Patient reports doing very well and is on a very stable regimen with the medications. Patient reports overall about 65 to 75% improvement with the medications and without specific side effects other than constipation which is controlled with Movantik completely. Patient rates her pain is 8 on scale 10 is worse with the past week 6 on his average 5 its least is a 7 today. Patient scribes the pain in the base the neck and shoulders upper back mid back and low back is aching and tight some burning pain as well radiating can be constant and severe with walking standing changing positions awakens her from sleep about once every 5 hours or so which is usually able to get back to sleep when she repositions. Patient reports no new side effects with the medications. Patient has been on very stable regimen and the current regimen allows her to be very f unctional with no sedation no drowsiness no itching dysphoria or euphoria. Patient also has spinal cord stimulator x2 which do help decrease the pain to a moderate extent but she reports only by about 25 to 50% at best, and are inconsistent in their level of pain reduction. Patient reports no new motor or sensory deficits no new bowel or bladder incontinence or other concerns at this time. Physical Exam: VS: Blood pressure is 121/82 pulse 83 respirations 18 temperature is 98.1 F weight is 170 pounds PE: PHYSICAL EXAMINATION: GENERAL: The patient is awake, alert, oriented, appropriate, very pleasant demeanor HEENT: Shows normocephalic, atraumatic. Extraocular movements are intact and symmetrical. Oral cavity: Mucous membranes moist and pink. Dentition is intact. NECK: Shows anterior throat supple without palpable lymphadenopathy noted. Swallow reflex symmetrical. CHEST: Shows normal on inspection. Breath sounds are clear bilaterally, no rales or rhonchi. HEART: Shows S1, S2 clear. No murmurs auscultated. ABDOMEN: Soft, nontender, nondistended, obese. No palpable organomegaly is noted. Mild tenderness in the left lower quadrant but without specific masses or rebound. BACK: Shows spine grossly in the midline. Normal-appearing cervical lordotic curvature. Cervical paraspinous muscles show symmetrical with inspection, on palpation shows some moderate tenderness diffusely throughout the upper middle lower decrease the paraspinous muscles as well as into the superior medial trapezius bilaterally but without specific trigger points and without radiation. Patient shows full rotation motion of the cervical spine both laterally as well as extension and flexion without significant increase in pain. There is increased thoracic kyphosis, some flattening of the lumbar lordotic curvature. Lumbar paraspinous muscles show symmetrical on inspection, on palpation shows some moderate tenderness diffusely throughout the upper, middle and lower distribution of the paraspinous muscles, but without specific trigger points, without radiation of pain. The patient has good rotational motion of the lumbar spine, both laterally as well as extension and flexion without significant rotation. No tenderness over the spinous processes, sacrum or sacroiliac regions. EXTREMITIES: Lower extremities show deep tendon reflexes 1+ in the patellar and tendo calcaneus tendons. Motor exam is 4 on a scale of 5 with right dorsiflexion, extension, quadriceps and hamstring flexion and 4/5 on the left. Peripheral pulses are 1+ posterior tibial. No peripheral edema is noted bilaterally. Lower extremities are warm and dry to touch, equal in color and appearance. Upper extremity show deep tendon reflexes 2+ in the bicep and tricep tendons, motor exam is strong with accounting/finance tutor strength rated at 5 out of 5 as is biceps and triceps flexion. Shoulder shrug is strong and intact without loss of strength on resistance bilaterally as is abduction of the shoulders at 90 degrees. SKIN: Shows warm and dry, good turgor. No edema. No sores, rashes or bruising throughout. Procedure: Procedure: Options were discussed with the patient. Patient chart reviews her current medication regimen updated current review of systems updated today as well. We will refill patient's methadone as well as oxycodone also Movantik and Savella with instructions and side effects beware discussed with each of the medications. Patient has had appropriate K tracts reporting as well as appropriate urinalyses to date and we will make this a 90-day refill. Patient will return to clinic in approximately 90 days or sooner if necessary. Medication Injected: Med Injected: None Condition at Discharge: Condition at Discharge: Condition at discharge is stable. WALT ARCHER MD Nov 06, 2020 12:34
== END | disposition home or self-care (01) ==
LOC: PNCL 11:32
PROVIDERS: ATTEND Anesthesiology
DX: G89.4 Chronic pain syndrome (principal); M79.18 Myalgia, other site; R10.9 Unspecified abdominal pain; M19.011 Primary osteoarthritis, right shoulder; M54.5 Low back pain; M54.2 Cervicalgia; M25.561 Pain in right knee; K21.9 Gastro-esophageal reflux disease without esophagitis; G47.30 Sleep apnea, unspecified; F41.9 Anxiety disorder, unspecified; F32.9 Major depressive disorder, single episode, unspecified; Z90.710 Acquired absence of both cervix and uterus; Z98.890 Other specified postprocedural states; Z79.899 Other long term (current) drug therapy; Z79.82 Long term (current) use of aspirin; Z72.89 Other problems related to lifestyle; Z88.8 Allergy status to other drugs, medicaments and biological substances
CPT/HCPCS: 99212; G0463

== ENCOUNTER → 2021-01-22 | Outpatient (CLI) | payer BC ==
[2019-02-22 15:30] VITALS: BP 102/63
[~2021-01-22] MED LIST changes: -CALC600T6 PO; +CALC600T60 PO
--- NOTE | 2021-01-22 11:53 | PDOC ---
Progress Note - Pain Clinic Date of Service: DOS: DATE: 01/22/21 TIME: 11:49 Diagnosis: Dx: Myofascial pain Multiple joint pain Cervicalgia Lumbar go Abdominal pain left lower quadrant Right knee joint pain with osteoarthritis and chronic postoperative pain Right shoulder joint pain with osteoarthritis Chronic pain syndrome History or Present Illness: HPI: 55-year-old female returns for follow-up status post medication managed with methadone and oxycodone Patient also taking Movantik and Savella. Patient reports he been doing very well on this regimen has been very stable with good pain relief with the methadone especially with oxycodone for breakthrough pain patient reports is about a 70 to 75% improvement overall with the medication without significant side effects suffer constipation which is helped with the Movantik. Patient rates her pain is a 7 on scale 10 is worse over the past week 7 on average 5 its least is a 7 today. Patient reported sharp and dull tight shooting in the mid back low back and upper back with pain increasing in the low back patient does have 2 spinal cord stimulators which she feels the lower one is not functioning as well as it could and is scheduled to have this reprogrammed soon. Patient reports otherwise no new motor or sensory deficits no new bowel or bladder incontinence and again no side effects with the medications. Physical Exam: VS: Blood pressure is 145/85 pulse 96 respirations 18 temperature 98.5 F weight is 165 pounds PE: PHYSICAL EXAMINATION: GENERAL: The patient is awake, alert, oriented, appropriate, very pleasant demeanor HEENT: Shows normocephalic, atraumatic. Extraocular movements are intact and symmetrical. Oral cavity: Mucous membranes moist and pink. Dentition is int act. NECK: Shows anterior throat supple without palpable lymphadenopathy noted. Swallow reflex symmetrical. CHEST: Shows normal on inspection. Breath sounds are clear bilaterally, no rales rhonchi or wheezes auscultated. HEART: Shows S1, S2 clear. No murmurs auscultated. ABDOMEN: Soft, nontender, mild tenderness in the left lower quadrant but without rebound or guarding, obese. No palpable organomegaly is noted. BACK: Shows spine grossly in the midline. Normal-appearing cervical lordotic curvature. There is slightly increased thoracic kyphosis, some minor flattening of the lumbar lordotic curvature. Well-healed surgical scars noted easily palpable spinal cord stimulator generators are palpable as well. Lumbar paraspinous muscles show symmetrical on inspection, on palpation shows some moderate tenderness diffusely throughout the upper, middle and lower distribution of the paraspinous muscles without specific trigger points, without radiation of pain. The patient has good rotational motion of the lumbar spine, both laterally as well as extension and flexion. EXTREMITIES: Lower extremities show deep tendon reflexes 1+ in the patellar and tendo calcaneus tendons. Motor exam is 4 on a scale of 5 with right dorsiflexion, extension, quadriceps and hamstring flexion and 4/5 on the left. Peripheral pulses are 1+ posterior tibial. No peripheral edema is noted bilaterally. Lower extremities are warm and dry to touch, equal in color and appearance. Upper extremities show deep tendon reflexes 2+ in the bicep and triceps tendons, motor exam is strong with 5 out of 5 ham pumper strength bicep and tricep flexion and equal. Peripheral pulses are 2+ radial. SKIN: Shows warm and dry, good turgor. No edema. No sores, rashes or bruising throughout. Procedure: Procedure: Options were discussed with the patient. Patient chart was reviewed as her current medication regimen updated current review of systems updated today as well. We will refill patient's oxycodone as well as methadone and Savella and Movantik with instructions and side effects beware of discussed with patient the medications. Patient has been on very stable regimen at this current level and has had appropriate K tracks report as well as appropriate urinalyses to date. We will make this a 90-day refill interval. Patient will return to clinic in approximate 90 days or sooner if necessary. Medication Injected: Med Injected: None Condition at Discharge: Condition at Discharge: Condition at discharge is stable. WALT ARCHER MD January 22, 2021 11:53
== END | disposition home or self-care (01) ==
LOC: PNCL 11:17
PROVIDERS: ATTEND Anesthesiology
DX: M79.18 Myalgia, other site (principal); M54.2 Cervicalgia; R10.32 Left lower quadrant pain; M17.11 Unilateral primary osteoarthritis, right knee; M19.011 Primary osteoarthritis, right shoulder; G89.4 Chronic pain syndrome; G47.30 Sleep apnea, unspecified; K21.9 Gastro-esophageal reflux disease without esophagitis; F41.9 Anxiety disorder, unspecified; F32.9 Major depressive disorder, single episode, unspecified; Z90.710 Acquired absence of both cervix and uterus; Z98.890 Other specified postprocedural states; Z79.899 Other long term (current) drug therapy; Z79.82 Long term (current) use of aspirin; Z72.89 Other problems related to lifestyle; Z88.8 Allergy status to other drugs, medicaments and biological substances
CPT/HCPCS: 99212; G0463

== ENCOUNTER → 2021-04-16 | Outpatient (CLI) | payer BC ==
[2019-02-22 15:30] VITALS: BP 102/63
[~2021-04-16] MED LIST changes: -LACT1CAP29 PO; +LACT1CAP37 PO; +METH-572 PO; -METH10TA2 PO
--- NOTE | 2021-04-16 09:26 | PDOC ---
Progress Note - Pain Clinic Date of Service: DOS: DATE: 04/16/21 TIME: : Diagnosis: Dx: Myofascial pain Multiple joint pain Cervicalgia Low back pain Abdominal pain left lower quadrant Right knee joint pain with osteoarthritis Right shoulder joint pain with osteoarthritis Chronic pain syndrome History or Present Illness: HPI: 55-year-old female returns for follow-up status post medication management with methadone and oxycodone 15mg. Patient reports doing very well with very stable regimen with the medication currently without any significant side effects. Patient rates her reduction pain about 75% overall and is able to perform daily activities with greater ease and comfort with the medications again without any certain side effects. Patient reports her pain is an 8 on scale 10 is worse over the past week 7 on average 3 its least is a 7 today patient reported aching and dull in the low back mid back and upper back tight and shooting in the low back radiating across the low back but not in the lower extremities can be constant and severe patient does have spinal cord stimulators x2 that were placed at an outside facility and has been having some programming done recently with different programs which are working a little better she reports then previously. Patient reports no new motor or sensory deficits no bowel or bladder incontinence complaints at this time. Physical Exam: VS: Blood pressure is 101/70 pulse 88 respirations 16 temperature 98.2 F height is 5 feet 7 inches weight is 171 pounds. PE: PHYSICAL EXAMINATION: GENERAL: The patient is awake, alert, oriented, appropriate, very pleasant in demeanor HEENT: Shows normocephalic, atraumatic. Extraocular movements are intact and symmetrical. Oral cavity: Mucous membranes moist and pink. NECK: Shows anterior throat supple without palpable lymphadenopathy noted. Swallow reflex symmetrical. CHEST: Shows normal on inspection. Breath sounds are clear bilaterally, no rales rhonchi wheezes auscultated. HEART: Shows S1, S2 clear. No murmurs auscultated. ABDOMEN: Soft, nontender, nondistended, obese. No palpable organomegaly is noted. BACK: Shows spine grossly in the midline. Normal-appearing cervical lordotic curvature. There is slightly increased thoracic kyphosis, some flattening of the lumbar lordotic curvature. Lumbar paraspinous muscles show symmetrical on inspection, on palpation shows some moderate tenderness diffusely throughout the upper, middle and lower distribution of the paraspinous muscles without specific trigger points, without radiation of pain. The patient has good rotational motion of the lumbar spine, both laterally as well as extension and flexion without significant difficulty. EXTREMITIES: Lower extremities show deep tendon reflexes 1+ in the patellar and tendo calcaneus tendons. Motor exam is 4 on a scale of 5 with right dorsiflexion, extension, quadriceps and hamstring flexion and 4/5 on the left. Peripheral pulses are 1 posterior tibial. No peripheral edema is noted bilaterally. Lower extremities are warm and dry to touch, equal in color and appearance. Upper extremity show deep tendon reflexes 2+ in the bicep tricep tendons motor exam strong with bending machine set up operator strength rated 5 out of 5 as is bicep and tricep flexion. Peripheral pulses are 2+ radial. SKIN: Shows warm and dry, good turgor. No edema. No sores, rashes or bruising throughout. Procedure: Procedure: Options discussed with patient. Patient's old chart was reviewed as her current medication regimen updated current view of systems updated today as well. We will prescribe patient's medication methadone and oxycodone as she has been on very stable regimen has had appropriate K tracks reporting has had appropriate urinalyses to date as well. Patient was given instructions well side effects to each of the medications and will follow up in approximately 4 weeks as scheduled. Medication Injected: Med Injected: None Condition at Discharge: Condition at Discharge: Condition at discharge is stable. WALT ARCHER MD Apr 16, 2021 09:26
== END | disposition home or self-care (01) ==
LOC: PNCL 08:10
PROVIDERS: ATTEND Anesthesiology
DX: M79.18 Myalgia, other site (principal); M54.2 Cervicalgia; M54.5 Low back pain; R10.32 Left lower quadrant pain; M17.11 Unilateral primary osteoarthritis, right knee; M19.011 Primary osteoarthritis, right shoulder; G89.29 Other chronic pain; G47.30 Sleep apnea, unspecified; K21.9 Gastro-esophageal reflux disease without esophagitis; F41.9 Anxiety disorder, unspecified; F32.9 Major depressive disorder, single episode, unspecified; M81.0 Age-related osteoporosis without current pathological fracture; Z90.710 Acquired absence of both cervix and uterus; Z98.890 Other specified postprocedural states; Z79.899 Other long term (current) drug therapy; Z79.82 Long term (current) use of aspirin; Z88.8 Allergy status to other drugs, medicaments and biological substances
CPT/HCPCS: 99212; G0463

== ENCOUNTER → 2021-05-27 | Outpatient (CLI) | payer BC ==
[2019-02-22 15:30] VITALS: BP 102/63
--- NOTE | 2021-05-27 14:41 | PDOC ---
Progress Note - Pain Clinic Date of Service: DOS: DATE: 05/27/21 TIME: 14:39 Diagnosis: Dx: Myofascial pain Chronic pain syndrome Multiple joint pain Low back pain Cervical pain Abdominal pain left lower quadrant Right shoulder pain with osteoarthritis Right shoulder joint pain with osteoarthritis History or Present Illness: HPI: Telemedicine visit today with patient's identity verified with date of and full name. Total time spent: 12 minutes 55-year-old female via telemedicine visit today for medication request and patient reporting she has increased pain after she fell about a week ago causing pain to her knee as well as her low back and neck upper back and shoulders. Patient reports the medication is helping and has been on very stable regimen with the methadone and oxycodone but is still having more pain and with some moderate constipation which is prevented with Movantik and hydration. Patient also taking Savella which she feels is helpful as well patient reports no other side effects with the medications otherwise doing fairly well except for the fall that she had recently as noted. We will electronically prescribed medications for the patient methadone and oxycodone with instructions side effects aware discussed with the patient for each of these. Patient has had appropriate K tracks portables appropriate urinalyses to date. Patient will follow up as scheduled. WALT ARCHER MD May 27, 2021 14:41
== END | disposition home or self-care (01) ==
LOC: PNCL 09:05
PROVIDERS: ATTEND Anesthesiology
DX: M79.18 Myalgia, other site (principal); G89.4 Chronic pain syndrome; R10.32 Left lower quadrant pain; M19.011 Primary osteoarthritis, right shoulder; M54.5 Low back pain; M81.0 Age-related osteoporosis without current pathological fracture; G47.30 Sleep apnea, unspecified; F41.9 Anxiety disorder, unspecified; F32.9 Major depressive disorder, single episode, unspecified; Z79.82 Long term (current) use of aspirin; Z79.899 Other long term (current) drug therapy; Z90.710 Acquired absence of both cervix and uterus; Z98.890 Other specified postprocedural states; Z88.8 Allergy status to other drugs, medicaments and biological substances
CPT/HCPCS: G0463

== ENCOUNTER → 2021-06-03 | Outpatient (CLI) | payer BC ==
[2019-02-22 15:30] VITALS: BP 102/63
[~2021-06-03] MED LIST changes: +FINA1TAB3 PO; +LUBI8CAP4 PO; +MINO2.5T12 PO; +NALO12.52 PO; +ONDA4TAB7 PO
--- NOTE | 2021-06-03 08:10 | PDOC ---
Progress Note - Pain Clinic Date of Service: DOS: DATE: 06/03/21 TIME: 08:06 Diagnosis: Dx: Myofascial pain Chronic pain syndrome Cervicalgia Low back pain Right knee joint pain with osteoarthritis Right shoulder joint pain with osteoarthritis History or Present Illness: HPI: 55-year-old female returns for follow-up status post medication management with methadone and oxycodone patient also taking Savella and Movantik which controls constipation fairly significantly patient reports doing fairly well with her medications however she had a fall several weeks ago about 3 weeks ago had some significant pain in the right lower rib cage and anterior now this is radiating worse anteriorly on the right side which is new and also into the abdomen because of significant tenderness and spasticity patient reports aching sharp dull tight shooting radiating can be constant severe also cramping in the right mid to lower abdomen also in the right flank and rib cage patient reports a 7-8 on scale 10 is worse over the past week 6 on average 3 its least is a 6 today patient reports she had some x-rays of the ribs and they were not fractured although it is disturbing her sleep difficulty with movement breathing can be very difficult with the spasticity in the right upper abdominal region as well. Patient reports no side effects from medications overall with the methadone oxycodone reports about a 70% improvement without side effects. Exception of constipation. Physical Exam: VS: Blood pressure 140/90 pulse 91 respirations 18 temperature 90.0 F height is 5 feet 9 inches weight is 167 pounds PE: PHYSICAL EXAMINATION: GENERAL: The patient is awake, alert, oriented, appropriate, very pleasant in demeanor HEENT: Shows normocephalic, atraumatic. Extraocular movements are intact and symmetrical. Oral cavity: Mucous membranes moist and pink. Dentition is intact. NECK: Shows anterior throat supple without palpable lymphadenopathy noted. Swallow reflex symmetrical. CHEST: Shows normal on inspection. Breath sounds are clear bilaterally, distant no rales rhonchi wheeze. Right rib cage shows tenderness over the intercostal musculature in the mid axillary line going anteriorly in the inferior aspect of the costal margins with very tender musculature diffusely with palpation throughout. Left side is nontender. HEART: Shows S1, S2 clear. No murmurs auscultated. ABDOMEN: Soft, nontender, nondistended, obese. No palpable organomegaly is noted. Patient shows significant tenderness with palpation in the right upper quadrant with some increased muscle tone and firm tender musculature in the lateral aspect of the upper right quadrant but without specific trigger points and without radiation. BACK: Shows spine grossly in the midline. Normal-appearing cervical lordotic curvature. There is slightly increased thoracic kyphosis, some minor flattening of the lumbar lordotic curvature. Lumbar paraspinous muscles show symmetrical on inspection, on palpation shows some moderate tenderness diffusely throughout the upper, middle and lower distribution of the paraspinous muscles, but without specific trigger points, without radiation of pain. The patient has good rotational motion of the lumbar spine, both laterally as well as extension and flexion without significant difficulty. No tenderness over the spinous processes, sacrum or sacroiliac regions. EXTREMITIES: Lower extremities show deep tendon reflexes 1+ in the patellar and tendo calcaneus tendons. Motor exam is 4 on a scale of 5 with right dorsiflexion, extension, quadriceps and hamstring flexion and 4/5 on the left. Peripheral pulses are 1 posterior tibial. No peripheral edema is noted bilaterally. Lower extremities are warm and dry to touch, equal in color and appearance. SKIN: Shows warm and dry, good turgor. No edema. No sores, rashes or bruising throughout. Procedure: Procedure: Options discussed with patient. Patient chart reviews her current medication regimen updated current view of systems updated today as well. We will add new medication of Flector patch 1.3% to the right costal margin and right upper quadrant abdominal region. Patient given instructions well side effects aware with the medication. Patient will follow up in approximately 4 weeks as scheduled. Medication Injected: Med Injected: None Condition at Discharge: Condition at Discharge: Condition at discharge is stable. WALT ARCHER MD Jun 03, 2021 08:10
== END ==
LOC: PNCL 07:36
PROVIDERS: ATTEND Anesthesiology
DX: M79.18 Myalgia, other site (principal); M54.5 Low back pain; M54.2 Cervicalgia; M17.11 Unilateral primary osteoarthritis, right knee; M19.011 Primary osteoarthritis, right shoulder; G89.4 Chronic pain syndrome
CPT/HCPCS: 99212; G0463

== ENCOUNTER → 2021-06-21 | Outpatient (CLI) | payer BC ==
[2019-02-22 15:30] VITALS: BP 102/63
--- NOTE | 2021-06-21 15:00 | NUR ---
Patient called states she she had her appendix out Monday and has been doubling up on her pain meds. Denies any new meds, allergies or constipation verified name and date of and pharmacy. patient states her pain level is a 4. call transfered to Dr West. patient checked in ktrax
--- NOTE | 2021-06-21 15:05 | PDOC ---
Progress Note - Pain Clinic Date of Service: DOS: DATE: 06/21/21 TIME: 15:02 Diagnosis: Dx: Myofascial pain Chronic pain syndrome Cervicalgia Low back pain Right knee joint pain with osteoarthritis Right shoulder joint pain with osteoarthritis History or Present Illness: HPI: Telemedicine visit with patient today with identity verified with date of as well as full name, total time spent 14 minutes. Patient calling status post appendectomy several days ago when of acute appendicitis and patient having a narcotic contract with our office refused pain medications from her surgeon rightly so to honor her narcotic contract. Reports any significant abdominal pain right lower quadrant specifically postoperatively and is requesting postoperative coverage for narcotics for the postoperative period. Patient on chronic narcotic schedule of oxycodone and methadone with Savella as well and again with no significant side effects from the medications except for constipation which is treated effectively with Movantik. We discussed this in some detail today and will call in additional oxycodone 15 mg tablets for every 4 hours as needed postoperative extreme pain. Patient given instructions well side effects to medications to be aware of. Patient had appropriate K tracks portables appropriate urinalyses to date. Patient will follow up in approximate 4 weeks as regularly scheduled. Physical Exam: PE: WALT ARCHER MD Jun 21, 2021 15:05
== END | disposition home or self-care (01) ==
LOC: PNCL 13:37
PROVIDERS: ATTEND Anesthesiology
DX: M17.11 Unilateral primary osteoarthritis, right knee (principal); M19.011 Primary osteoarthritis, right shoulder; M79.18 Myalgia, other site; G89.29 Other chronic pain; M54.2 Cervicalgia; M54.59 Other low back pain; K21.9 Gastro-esophageal reflux disease without esophagitis; G47.30 Sleep apnea, unspecified; F41.9 Anxiety disorder, unspecified; F32.9 Major depressive disorder, single episode, unspecified; M81.0 Age-related osteoporosis without current pathological fracture; Z79.82 Long term (current) use of aspirin; Z79.899 Other long term (current) drug therapy; Z98.890 Other specified postprocedural states; Z82.49 Family history of ischemic heart disease and other diseases of the circulatory system; Z83.3 Family history of diabetes mellitus
CPT/HCPCS: 99212; G0463

== ENCOUNTER → 2021-07-05 | Outpatient (CLI) | payer BC ==
[2019-02-22 15:30] VITALS: BP 102/63
[~2021-07-05] MED LIST changes: -MULT-55 PO; +MULT-684 PO
--- NOTE | 2021-07-05 13:46 | PDOC ---
Progress Note - Pain Clinic Date of Service: DOS: DATE: 07/05/21 TIME: 13:42 Diagnosis: Dx: Myofascial pain Chronic pain syndrome Cervicalgia Low back pain Right knee joint pain with osteoarthritis Right shoulder joint pain with osteoarthritis Abdominal pain History or Present Illness: HPI: 55-year-old female returns for follow-up status post medication management with methadone and oxycodone. Patient reports she is doing fairly well with this has recently had an appendectomy laparoscopically which is still having some re sidual postoperative pain we had called in some additional oxycodone for the postoperative pain and patient reports this did help significantly patient is doing some stretching strength exercise with abdominal wall as well to try to decrease the pain also which seems to help but is very slow process and still have significant pain especially over the areas of the laparoscopic instruments. Patient reports her pain is a 7 on scale 10 is worst average and a 3 at its least and is a 7 today patient was aching dull tight stabbing can be radiating constantly in the abdomen but also in the base the neck and shoulders right flank and side although the diclofenac patches are helping significantly with the right sided rib pain. Patient reports no loss of motor function but still having significant abdominal pain during her postoperative course. Physical Exam: VS: Blood pressure is 131/86 pulse 77 respiration 16 temperature 98.0 F weight is 169 pounds PE: PHYSICAL EXAMINATION: GENERAL: The patient is awake, alert, oriented, appropriate, very pleasant in demeanor HEENT: Shows normocephalic, atraumatic. Extraocular movements are intact and symmetrical. Oral cavity: Mucous membranes moist and pink. Dentition is i ntact. NECK: Shows anterior throat supple without palpable lymphadenopathy noted. Swallow reflex symmetrical. CHEST: Shows normal on inspection. Breath sounds are clear bilaterally, distant but no rales or rhonchi. HEART: Shows S1, S2 clear. No murmurs auscultated. ABDOMEN: Soft, nontender, nondistended. No palpable organomegaly is noted. Well-healing surgical scars noted from laparoscopic surgery with very tender with light palpation throughout the bilateral lower quadrants BACK: Shows spine grossly in the midline. Normal-appearing cervical lordotic curvature. Cervical paraspinous muscles show symmetrical inspection with pal pation some moderate tenderness diffusely bilaterally only diffusely without significant radiation. There is slightly increased thoracic kyphosis, some minor flattening of the lumbar lordotic curvature. Lumbar paraspinous muscles show symmetrical on inspection, on palpation shows some moderate tenderness diffusely throughout the upper, middle and lower distribution of the paraspinous muscles without specific trigger points, without radiation of pain. The patient has good rotational motion of the lumbar spine, both laterally as well as extension and flexion without significant difficulty. No tenderness over the spinous processes, sacrum or sacroiliac regions. EXTREMITIES: Lower extremities show deep tendon reflexes 2+ in the patellar and tendo calcaneus tendons. Motor exam is 4 on a scale of 5 with right dorsiflexion, extension, quadriceps and hamstring flexion and 4/5 on the left. Peripheral pulses are 1+ posterior tibial. No peripheral edema is noted bilaterally. Lower extremities are warm and dry to touch, equal in color and appearance. Upper extremities show deep tendon reflexes 2+ in the bicep tricep tendons motor exam is 5 out of 5 with prosthodontist/educator strength bicep and tricep flexion. SKIN: Shows warm and dry, good turgor. No edema. No sores, rashes or bruising throughout. Procedure: Procedure: Options were discussed with the patient. Patient chart was reviewed as her current medication regimen updated current review of systems updated today as well. We will refill patient's methadone as well as oxycodone with instructions and side effects beware of discussed. Patient is had appropriate K tracks report as well as appropriate urinalysis today and will have a urinalysis drawn today as part of routine screening as well. Patient was given instructions well side effects aware of these medications will follow up in approximately 4 weeks as scheduled. Medication Injected: Med Injected: None Condition at Discharge: Condition at Discharge: Condition at discharge stable WALT ARCHER MD Jul 05, 2021 13:46
== END | disposition home or self-care (01) ==
LOC: PNCL 12:22
PROVIDERS: ATTEND Anesthesiology
DX: G89.4 Chronic pain syndrome (principal); M79.18 Myalgia, other site; M54.2 Cervicalgia; M54.50 Low back pain, unspecified; M17.11 Unilateral primary osteoarthritis, right knee; M19.011 Primary osteoarthritis, right shoulder; R10.9 Unspecified abdominal pain; G47.30 Sleep apnea, unspecified; K21.9 Gastro-esophageal reflux disease without esophagitis; F41.9 Anxiety disorder, unspecified; F32.9 Major depressive disorder, single episode, unspecified; Z79.82 Long term (current) use of aspirin; Z79.899 Other long term (current) drug therapy; Z90.710 Acquired absence of both cervix and uterus; Z98.890 Other specified postprocedural states; Z88.8 Allergy status to other drugs, medicaments and biological substances
CPT/HCPCS: 99212; G0463

== ENCOUNTER → 2021-07-23 | Outpatient (CLI) | payer BC ==
[2019-02-22 15:30] VITALS: BP 102/63
--- NOTE | 2021-07-23 16:08 | PDOC ---
Progress Note - Pain Clinic Date of Service: DOS: DATE: 07/23/21 TIME: 16:06 Diagnosis: Dx: Myofascial pain Chronic pain syndrome Cervicalgia Low back pain Right knee joint pain with osteoarthritis Right shoulder joint pain with osteoarthritis History or Present Illness: HPI: 55-year-old female via telemedicine conference today with identity verified with full date of and full name, total time spent 12 minutes Patient called for medication refill of been on very stable regimen of methadone and oxycodone without any significant side effects. Patient reports doing very well with this but still about a 70% improvement overall with the medications and again without side effects. Patient reports no new finding still significant pain neck shoulders upper back mid back low back but abdominal pain is resolving slowly after her appendectomy and she feels that this is getting better day by day. Patient reports no motor or sensory deficits. Patient has had appropriate K tracks report as well as appropriate urinalyses to date. We will refill patient's medication both oxycodone and methadone for a 30-day prescription via electronic prescription. Patient was given instructions well side effects aware of each of the medications. She will follow up in approximate 1 month as scheduled. Physical Exam: PE: WALT ARCHER MD Jul 23, 2021 16:08
== END | disposition home or self-care (01) ==
LOC: PNCL 15:19
PROVIDERS: ATTEND Anesthesiology
DX: M79.18 Myalgia, other site (principal); M54.2 Cervicalgia; M54.59 Other low back pain; M25.511 Pain in right shoulder; M19.011 Primary osteoarthritis, right shoulder; M25.561 Pain in right knee; M17.11 Unilateral primary osteoarthritis, right knee; M19.90 Unspecified osteoarthritis, unspecified site; G47.30 Sleep apnea, unspecified; F32.9 Major depressive disorder, single episode, unspecified; F41.9 Anxiety disorder, unspecified; M81.0 Age-related osteoporosis without current pathological fracture; Z98.890 Other specified postprocedural states; Z79.899 Other long term (current) drug therapy
CPT/HCPCS: 99212; G0463

== ENCOUNTER → 2021-08-23 | Outpatient (CLI) | payer BC ==
[2019-02-22 15:30] VITALS: BP 102/63
--- NOTE | 2021-08-23 13:13 | NUR ---
Patient called requesting a medication refill denied any new medication, allergies, or medical problems . Name and verified, pharmacy verified, next appointment verified. Patient denied constipation [employer] checked. call transferred to Dr West.
--- NOTE | 2021-08-23 16:05 | PDOC ---
Progress Note - Pain Clinic Date of Service: DOS: DATE: 08/23/21 TIME: 16:02 Diagnosis: Dx: Myofascial pain Chronic pain syndrome Cervicalgia Low back pain Right knee joint pain with osteoarthritis Right shoulder joint pain with osteoarthritis History or Present Illness: HPI: Telemedicine visit today with patient with identity verified with full name as well as full date of , total time spent 14 minutes 56-year-old female via telemedicine visit for refill on patient's methadone and oxycodone. Patient reports she is doing very well with his very stable regimen without any side effects and is tolerating medications very well with increasing her activity with increased pain base of neck shoulders upper back mid back and some in the abdominal wall with some flank pain on the right side but otherwise very well controlled with medication again patient has had appropriate K tracks report as well as appropriate urinalyses to date. We discussed patient's options and we will refill her medications today methadone 10 mg 4 tablets 3 times daily as well as oxycodone 15mg 1 every 4-6 hours with instructions side effects aware discussed each of medications. Patient will follow up in approximately 1 month as scheduled. WALT ARCHER MD Aug 23, 2021 16:05
== END | disposition home or self-care (01) ==
LOC: PNCL 13:00
PROVIDERS: ATTEND Anesthesiology
DX: G89.4 Chronic pain syndrome (principal); M79.18 Myalgia, other site; M54.2 Cervicalgia; M54.50 Low back pain, unspecified; M19.011 Primary osteoarthritis, right shoulder; M17.11 Unilateral primary osteoarthritis, right knee; G47.30 Sleep apnea, unspecified; K21.9 Gastro-esophageal reflux disease without esophagitis; F41.9 Anxiety disorder, unspecified; F32.9 Major depressive disorder, single episode, unspecified; Z90.710 Acquired absence of both cervix and uterus; Z98.890 Other specified postprocedural states; Z79.899 Other long term (current) drug therapy; Z79.82 Long term (current) use of aspirin; Z72.89 Other problems related to lifestyle; Z82.49 Family history of ischemic heart disease and other diseases of the circulatory system; Z83.3 Family history of diabetes mellitus
CPT/HCPCS: 99212; G0463

== ENCOUNTER → 2021-09-02 | Outpatient (CLI) | payer BC ==
[2019-02-22 15:30] VITALS: BP 102/63
--- NOTE | 2021-09-02 14:45 | EKG ---
[facility] [address] [place] [address] Test Date: 2021-09-02 Test Time: 14:42:54 Pat Name: KENA GARCIA Department: Room: Gender: F Vp [employer]: KEM : 1965 Requested By: WALT ARCHER Order Number: [id number] Reading MD: Troy Dubois Measurements Intervals [place] Rate: 83 P: 65 MT: 186 QRS: 17 QRSD: 88 T: 47 QT: 364 QTc: 428 Interpretive Statements SINUS RHYTHM LEFT ATRIAL ABNORMALITY Electronically Signed On 09-05-2021 12:10:40 ROLL TESTER by Troy Dubois
== END | disposition home or self-care (01) ==
LOC: EKG 14:30
PROVIDERS: ATTEND Anesthesiology
DX: R94.31 Abnormal electrocardiogram [ECG] [EKG] (principal); G47.30 Sleep apnea, unspecified; K21.9 Gastro-esophageal reflux disease without esophagitis; M19.90 Unspecified osteoarthritis, unspecified site; F41.9 Anxiety disorder, unspecified; F32.9 Major depressive disorder, single episode, unspecified; M81.0 Age-related osteoporosis without current pathological fracture; Z90.710 Acquired absence of both cervix and uterus; Z98.890 Other specified postprocedural states; Z79.899 Other long term (current) drug therapy; Z79.82 Long term (current) use of aspirin; Z72.89 Other problems related to lifestyle; Z88.8 Allergy status to other drugs, medicaments and biological substances
CPT/HCPCS: 93005

== ENCOUNTER → 2021-09-23 | Outpatient (CLI) | payer BC ==
[2019-02-22 15:30] VITALS: BP 102/63
--- NOTE | 2021-09-23 10:35 | PDOC ---
Progress Note - Pain Clinic Date of Service: DOS: DATE: 09/23/21 TIME: 10:31 Diagnosis: Dx: Chronic pain syndrome Myofascial pain Cervicalgia Low back pain Right knee joint pain with osteoarthritis Right shoulder joint pain with osteoarthritis History or Present Illness: HPI: 56-year-old female returns status post medication management with both oxycodone and methadone patient reports is doing very well with this also has spinal cord stimulator and reports this was recently reprogrammed with good results as well. Patient reports he still has significant back pain however mostly on the right side but across the low back and also mid back upper back and shoulders right shoulder significantly tender and she is having an MRI scan performed on that next week with her orthopedic surgeon patient reports her pain is a 7-8 on scale 10 is worse over the past week 5 on average for its least is a [address] aching and dull in the shoulder cramping constant severe in the back and neck as well as the low back on the right side is also cramping can be constant and severe as well. Patient reports does not affect her ability to walk significantly she not use any assistive devices does awaken her from sleep occasionally but most times she can sleep about 6 hours without disturbance. Patient reports no side effects with medications and overall reports about a 75% improvement with medications alone. Patient reports no new bowel or bladder incontinence no loss of motor function still significant difficulty with repetitive motions with the right shoulder as well as the right knee with standing and walking although improving with medications. Physical Exam: VS: Blood pressure is 120/75 pulse 91 respirations 18 temperature is 98.1 F weight is 169 PE: PHYSICAL EXAMINATION: GENERAL: The patient is awake, alert, oriented, appropriate, very pleasant in demeanor HEENT: Shows normocephalic, atraumatic. Extraocular movements are intact and symmetrical. Oral cavity: Mucous membranes moist and pink. Dentition is intact. NECK: Shows anterior throat supple without palpable lymphadenopathy noted. Swallow reflex symmetrical. CHEST: Shows normal on inspection. Breath sounds are clear bilaterally, distant but no rales or rhonchi. HEART: Shows S1, S2 clear. No murmurs auscultated. ABDOMEN: Soft, nontender, nondistended. No palpable organomegaly is noted. BACK: Shows spine grossly in the midline. Normal-appearing cervical lordotic curvature. There is mildly increased thoracic kyphosis, some mild flattening of the lumbar lordotic curvature. Lumbar paraspinous muscles show symmetrical on inspection, on palpation shows some moderate tenderness diffusely throughout the upper, middle and lower distribution of the paraspinous muscles, but without specific trigger points, without radiation of pain. The patient has good rotational motion of the lumbar spine, both laterally as well as extension and flexion with mild pain with extension and right lateral rotation but not with forward flexion or left lateral rotation. No tenderness over the spinous processes, sacrum or sacroiliac regions. EXTREMITIES: Lower extremities show deep tendon reflexes 2+ in the patellar and tendo calcaneus tendons. Motor exam is 4 on a scale of 5 with right dorsiflexion, extension, quadriceps and hamstring flexion and 4/5 on the left. Peripheral pulses are 1+ posterior tibial. No peripheral edema is noted bilaterally. Lower extremities are warm and dry to touch, equal in color and appearance. Upper extremity show deep tendon reflexes 2+ in the bicep tricep tendons, motor exam strong with gis engineer strength rated 5 out of 5 as is bicep and tricep flexion. Patient right shoulder shows significant tenderness with abduction past about 45 to 50 degrees and tenderness with palpation over the anterior deltoid as well as the bicipital groove on the right side as well as some posteriorly but not over the acromioclavicular joint. Left side shows full rotation motion without significant difficulty with motion or with palpation. SKIN: Shows warm and dry, good turgor. No edema. No sores, rashes or bruising throughout. Procedure: Procedure: Options were discussed with the patient. Patient's old chart was reviewed as her current medication regimen updated current review of systems updated today as well. We will refill patient's methadone as well as oxycodone as patient is had appropriate K tracks report as well as appropriate urinalyses to date. Patient was given instructions as well as side effects beware of each of the medications. Patient will follow up in approximately 30 days as scheduled. Medication Injected: Med Injected: None Condition at Discharge: Condition at Discharge: Condition at discharge is stable. WALT ARCHER MD Sep 23, 2021 10:35
== END | disposition home or self-care (01) ==
LOC: PNCL 09:41
PROVIDERS: ATTEND Anesthesiology
DX: G89.4 Chronic pain syndrome (principal); M79.18 Myalgia, other site; M54.2 Cervicalgia; M54.50 Low back pain, unspecified; M19.011 Primary osteoarthritis, right shoulder; M17.11 Unilateral primary osteoarthritis, right knee; G47.30 Sleep apnea, unspecified; K21.9 Gastro-esophageal reflux disease without esophagitis; M19.90 Unspecified osteoarthritis, unspecified site; F41.9 Anxiety disorder, unspecified; F32.9 Major depressive disorder, single episode, unspecified; Z79.82 Long term (current) use of aspirin; Z90.710 Acquired absence of both cervix and uterus; Z98.890 Other specified postprocedural states; Z79.899 Other long term (current) drug therapy; Z88.8 Allergy status to other drugs, medicaments and biological substances
CPT/HCPCS: 99212; G0463

== ENCOUNTER → 2021-10-27 | Outpatient (CLI) | payer BC ==
[2019-02-22 15:30] VITALS: BP 102/63
--- NOTE | 2021-10-27 13:34 | NUR ---
Patient called states she needs a refill on her medications. Verified name and , pharmacy, no new medications, and next appointment. patient denies any new medical problems, states constipation is under control, denies new allergies. [facility] is correct.
--- NOTE | 2021-10-27 14:23 | PDOC ---
Progress Note - Pain Clinic Date of Service: DOS: DATE: 10/27/21 TIME: 14:21 Diagnosis: Dx: Chronic pain syndrome Myofascial pain Cervicalgia Low back pain Right knee joint pain with osteoarthritis Right shoulder joint pain with osteoarthritis History or Present Illness: HPI: Telemedicine visit today with patient with full date of and full name for identity, total time spent 14 minutes 56-year-old female via telemedicine visit today requesting refill of medications of methadone and oxycodone. Patient has been on very stable regimen for extended period of time and does very well with the medications without any excessive sedation dysphoria or euphoria very rare constipation patient reports no new side effects and is doing very well with about a 75 to 80% improvement w ith medications overall. Patient has had appropriate K tracks report as well as appropriate urinalyses to date as well. Patient reports she still has significant pain in the right shoulder right knee status post surgery and rehab but also pain in the flank in the mid upper back patient reports that she is using both of her spinal cord stimulators and keeping them charged adequately and they do help with the pain but only by about 20 to 30%. Patient reports no other side effects with medication or other complaints at this time. We discussed options, and we will refill patient's medication for 30-day supply. Patient is given instructions as well as side effects beware of with each of the medications. Patient will follow up in approximate 30 days as scheduled. Physical Exam: PE: WALT ARCHER MD Oct 27, 2021 14:23
--- NOTE | 2021-11-02 11:37 | FMN ---
PT PROBLEMS Addendum for visit of October 27, 2021. Telemedicine visit via telephone, voice only. WALT ARCHER MD Nov 02, 2021 11:37
== END | disposition home or self-care (01) ==
LOC: PNCL 13:33
PROVIDERS: ATTEND Anesthesiology
DX: G89.28 Other chronic postprocedural pain (principal); M79.18 Myalgia, other site; M54.2 Cervicalgia; M17.11 Unilateral primary osteoarthritis, right knee; M19.011 Primary osteoarthritis, right shoulder; G47.30 Sleep apnea, unspecified; K21.9 Gastro-esophageal reflux disease without esophagitis; M81.0 Age-related osteoporosis without current pathological fracture; F41.9 Anxiety disorder, unspecified; F32.9 Major depressive disorder, single episode, unspecified; Z90.710 Acquired absence of both cervix and uterus; Z98.890 Other specified postprocedural states; Z79.899 Other long term (current) drug therapy; Z79.82 Long term (current) use of aspirin
CPT/HCPCS: 99212; G0463

== ENCOUNTER → 2021-11-24 | Outpatient (CLI) | payer BC ==
[2019-02-22 15:30] VITALS: BP 102/63
--- NOTE | 2021-11-24 13:46 | NUR ---
Patient called requesting a medication refill verified name and , pharmacy, next appointment and pain level is a 5. patient denied new medication, constipation, or new allergies. [facility] is correct. call transferred to Dr West.
--- NOTE | 2021-11-24 16:13 | PDOC ---
Progress Note - Pain Clinic Date of Service: DOS: DATE: 11/24/21 TIME: 16:10 Diagnosis: Dx: Chronic pain syndrome Myofascial pain Cervicalgia Low back pain Right knee joint pain with osteoarthritis Right shoulder joint pain with osteoarthritis History or Present Illness: HPI: Telemedicine visit today with patient's attending verified with full name as well as full date of , total time spent 14 minutes, telephone voice only. 56-year-old female via telemedicine visit questing a refill of methadone as well as oxycodone. Patient has been on very stable regimen with these medications for extended period of time without any significant side effects and reports about a 70 to 75% improvement with her medic occasions and reduction of pain. Patient has had appropriate K tracks reporting as well as appropriate urinalyses as well to date. We discussed options with the patient and we will refill methadone as well as oxycodone, with instructions and side effects were discussed with each. New prescriptions were made for a 1 month timeperiod. Patient will follow up in approximately 30 days as scheduled. Physical Exam: PE: WALT ARCHER MD Nov 24, 2021 16:13
== END | disposition home or self-care (01) ==
LOC: PNCL 13:31
PROVIDERS: ATTEND Anesthesiology
DX: G89.4 Chronic pain syndrome (principal); M79.18 Myalgia, other site; M54.2 Cervicalgia; M54.50 Low back pain, unspecified; M17.11 Unilateral primary osteoarthritis, right knee; M19.011 Primary osteoarthritis, right shoulder; K21.9 Gastro-esophageal reflux disease without esophagitis; G47.30 Sleep apnea, unspecified; M81.0 Age-related osteoporosis without current pathological fracture; M19.90 Unspecified osteoarthritis, unspecified site; F41.9 Anxiety disorder, unspecified; F32.9 Major depressive disorder, single episode, unspecified; Z90.710 Acquired absence of both cervix and uterus; Z98.890 Other specified postprocedural states; Z79.82 Long term (current) use of aspirin; Z79.899 Other long term (current) drug therapy; Z72.89 Other problems related to lifestyle
CPT/HCPCS: 99212; G0463

== ENCOUNTER → 2021-12-22 | Outpatient (CLI) | payer BC ==
[2019-02-22 15:30] VITALS: BP 102/63
--- NOTE | 2021-12-22 13:51 | PDOC ---
Progress Note - Pain Clinic Date of Service: DOS: DATE: 12/22/21 TIME: 13:48 Diagnosis: Dx: Chronic pain syndrome Myofascial pain Cervicalgia Low back pain Right knee joint pain with osteoarthritis Right shoulder joint pain with osteoarthritis History or Present Illness: HPI: 56-year-old female returns status post medication management with both methadone and oxycodone. Patient reports doing very well with this been a very stable regimen still some significant pain however in the neck and shoulders upper extremity as well as in the right shoulder and right knee but right knee is doing much better after surgery. Patient reports still some pain in the flank she has a spinal cord stimulator which is pending working fairly well but needs reprogramming has it scheduled for about 1 week from now. Patient reports she has recently had radiofrequency ablation at an outside facility in the thoracic distribution which is helped but by only about 50%. Patient reports no side effects with the medications reports still significant pain rated as 8 on scale 10 is worse over the past week 5 on average 3 to [place] is a 5 today describes aching and sharp dull tight stabbing can be radiating constant severe in the back and shoulders as well as in the tailbone at times. Patient reports better at night but is only sleeping 6hours at the most. Patient reports difficulty getting to sleep as well. Patient reports no side effects with her medications has had appropriate K tracks report as well as appropriate urinalyses to date as well. Physical Exam: VS: Blood pressure is 131/84 pulse 99 respirations 18 temperature is 98.1 F height 5 feet 8 inches weight is 168 pounds. PE: PHYSICAL EXAMINATION: GENERAL: The patient is awake, alert, oriented, appropriate, very pleasant in demeanor HEENT: Shows normocephalic, atraumatic. Extraocular movements are intact and symmetrical. Oral cavity: Mucous membranes moist and pink. Dentition is intact. NECK: Shows anterior throat supple without palpable lymphadenopathy noted. Swallow reflex symmetrical. CHEST: Shows normal on inspection. Breath sounds are clear bilaterally. HEART: Shows S1, S2 clear. No murmurs auscultated. ABDOMEN: Soft, nontender, nondistended. No palpable organomegaly is noted. BACK: Shows spine grossly in the midline. Normal-appearing cervical lordotic curvature. There is mildly increased thoracic kyphosis, some flattening of the lumbar lordotic curvature. Lumbar paraspinous muscles show symmetrical on inspection, on palpation shows some moderate tenderness diffusely throughout the upper, middle and lower distribution of the paraspinous muscles without specific trigger points, without radiation of pain. The patient has good rotational motion of the lumbar spine, both laterally as well as extension and flexion without significant difficulty. EXTREMITIES: Lower extremities show deep tendon reflexes 1+ in the patellar and tendo calcaneus tendons. Motor exam is 4 on a scale of 5 with right dorsiflexion, extension, quadriceps and hamstring flexion and 4/5 on the left. Peripheral pulses are 1+ posterior tibial. No peripheral edema is noted bilaterally. Lower extremities are warm and dry. Upper extremities show deep and reflexes 2+ in the bicep tricep tendons motor exam is strong with insurance claims clerk strength rated 5 out of 5 as bicep and tricep flexion bilaterally. SKIN: Shows warm and dry, good turgor. No edema. No sores, rashes or bruising throughout. Procedure: Procedure: Options discussed with the patient. Patient's old chart was reviewed as her current medication regimen updated current review of systems updated today as well. We will refill patient's methadone as well as oxycodone with instructions side effects aware discussed each of medications. Again patient is had appropriate K tracks report as well as appropriate urinalyses to date and we will make this a 30-day supply. Patient will follow up in approximate 30 days as scheduled. Medication Injected: Med Injected: None Condition at Discharge: Condition at Discharge: Condition at discharge is stable. WALT ARCHER MD Dec 22, 2021 13:51
== END | disposition home or self-care (01) ==
LOC: PNCL 12:58
PROVIDERS: ATTEND Anesthesiology
DX: G89.4 Chronic pain syndrome (principal); M79.18 Myalgia, other site; M54.2 Cervicalgia; M54.50 Low back pain, unspecified; M17.11 Unilateral primary osteoarthritis, right knee; M19.011 Primary osteoarthritis, right shoulder; K21.9 Gastro-esophageal reflux disease without esophagitis; G47.30 Sleep apnea, unspecified; F41.9 Anxiety disorder, unspecified; F32.9 Major depressive disorder, single episode, unspecified; M81.0 Age-related osteoporosis without current pathological fracture; Z90.710 Acquired absence of both cervix and uterus; Z98.890 Other specified postprocedural states; Z79.82 Long term (current) use of aspirin; Z79.899 Other long term (current) drug therapy; Z88.8 Allergy status to other drugs, medicaments and biological substances
CPT/HCPCS: 99212; G0463

== ENCOUNTER → 2022-01-25 | Outpatient (CLI) | payer BC ==
[2019-02-22 15:30] VITALS: BP 102/63
--- NOTE | 2022-01-25 14:02 | PDOC ---
Progress Note - Pain Clinic Date of Service: DOS: DATE: 01/25/22 TIME: 14:00 Diagnosis: Dx: Chronic pain syndrome Myofascial pain Right knee joint pain with osteoarthritis Right shoulder pain with osteoarthritis Aston-Danlos syndrome History or Present Illness: HPI: Telemedicine visit with patient with identity verified with full name, as well as date of , total time spent with 14 minutes, telephone voice only. 56-year-old female via telemedicine visit today requesting refill of methadone and oxycodone patient is doing very well with been on very stable regimen with the medications for an extended period of time without any significant side e ffects patient reports he is doing quite well most days pain is fairly well controlled she also has a spinal cord stimulators x2 which are helpful in keeping those charged without difficulty by her report as well. Patient reports no side effects with medications reports overall about a 65% improvement with the medications with her current regimen. Patient reports no new changes no new motor or sensory deficits or bowel or bladder incontinence. Patient has had appropriate K tracks report as well as appropriate urinalyses to date as well. Options were discussed with the patient and we will electronically prescribed methadone and oxycodone patient was given instructions well side effects aware of each of the medications and will follow up approximate 30 days as scheduled. Physical Exam: PE: WALT ARCHER MD January 25, 2022 14:02
== END | disposition home or self-care (01) ==
LOC: PNCL 13:10
PROVIDERS: ATTEND Anesthesiology
DX: G89.4 Chronic pain syndrome (principal); M79.18 Myalgia, other site; M17.11 Unilateral primary osteoarthritis, right knee; M19.011 Primary osteoarthritis, right shoulder; Q79.60 Ehlers-Danlos syndrome, unspecified; G47.30 Sleep apnea, unspecified; K21.9 Gastro-esophageal reflux disease without esophagitis; F41.9 Anxiety disorder, unspecified; F32.9 Major depressive disorder, single episode, unspecified; Z79.82 Long term (current) use of aspirin; Z79.899 Other long term (current) drug therapy; Z88.8 Allergy status to other drugs, medicaments and biological substances; Z98.890 Other specified postprocedural states
CPT/HCPCS: 99212; G0463